=== PATIENT | female | born 1955 | race Caucasian/White ===

== ENCOUNTER 2016-06-13 13:26 | Emergency (ER) | payer BC ==
[~2016-06-13] VITALS: Ht 170.2 cm; Wt 111.6 kg
[~2016-06-13 13:26] MED LIST: HYDR1TAB8 PO; ORPH100T PO
--- NOTE | 2016-06-13 15:21 | Diagnostic Imaging Report ---
Three views of the right knee. INDICATION: Fall. FINDINGS: There is no fracture, dislocation or radiopaque foreign body. Small tricompartment osteophytes seen. There is a small to moderate suprapatellar effusion. IMPRESSION: Osteoarthritis. Small to moderate suprapatellar effusion. Dictated by: Dictated on workstation # [id number]
--- NOTE | 2016-06-13 15:23 | ED Lower Extremity ---
General Chief Complaint: Lower Extremity Stated Complaint: R KNEE PAIN Nursing Triage Note: Fell on right knee after it popped today, pain since early Dec fall onto knees on concrete Nursing Sepsis Screen: No Definite Risk Source: patient, family (daughter and son-in-law) Exam Limitations: no limitations History of Present Illness Time seen by provider: 15:23 Initial Comments 60-year-old female patient presents to the emergency department for complaints of falling on her bilateral knees approximately 3-4 weeks ago. Denies hitting her head or loss of consciousness. Reports increased right knee pain with popping sensation. Worse today. Also complains of right posterior knee pain and swelling. Denies claudication. Does report any intermittently locks when extended and intermittently locks when flexed. Denies numbness or tingling. Location Injury Occurred: home (3-4 wks ago) Onset: this morning Pain/Injury Location: right knee Method of Injury: fell ( (3-4 wks ago)) Modifying Factors: Improves With Immobilization, Worse With Movement Allergies and Home Medications Allergies Coded Allergies: No Known Drug Allergies (Unverified , 11/18/14) Home Medications Hydrocodone/Ibuprofen 1 Each Tablet #20 1 EACH PO Q4H Prescribed by: SEVERO TELLEZ on 04/03/152351 Orphenadrine Citrate 100 Mg Tablet.er #14 100 MG PO BID FOR MUSCLE SPASMS Prescribed by: SEVERO TELLEZ on 04/03/152 Constitutional: no symptoms reported Respiratory: No cough, No dyspnea on exertion, No orthopnea, No short of breath Cardiovascular: No chest pain, No palpitations, No syncope Gastrointestinal: no symptoms reported Genitourinary: no symptoms reported Musculoskeletal: see HPINo back pain, joint pain joint swelling (rt knee)No neck pain Skin: no symptoms reported Psychiatric/Neurological: No Symptoms Reported All Other Systems Reviewed Negative Unless Noted: Yes (Negative excepted noted.) Past Azfkgog-Bazzrd-Oscasb Hx Patient Social History Former Smoker/When Quit: Dec 16, 2003 Recent Foreign Travel: No Contact w/Someone Who Travel: No Recent Infectious Disease Expo: No Immunizations Up To Date Tetanus Booster (TDap): More than 5yrs Surgeries HX Surgeries: Yes (BACK SURGERY, CARDIAC CATH) Surgeries: Cardiac, Hysterectomy, Orthopedic Respiratory Hx Respiratory Disorders: No Cardiovascular Hx Cardiac Disorders: Yes (mitral valve prolapse with regurgitation) Cardiac Disorders: Hypertension, Valvular Heart Disease Neurological Hx Neurological Disorders: Yes Neurological Disorders: Neuropathy Reproductive System Hx Reproductive Disorders: No 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 Genitourinary Hx Genitourinary Disorders: No Gastrointestinal Hx Gastrointestinal Disorders: No Musculoskeletal Hx Musculoskeletal Disorders: Yes (BACK SURGERY) Musculoskeletal Disorders: Fibromyalgia, Chronic Back Pain Endocrine Hx Endocrine Disorders: Yes Endocrine Disorders: Hypothyroidsim, Diabetes, Non-Insulin dep HEENT HX ENT Disorders: No Cancer Hx Cancer: No Psychosocial Hx Psychiatric Problems: No Integumentary HX Skin/Integumentary Disorder: No Blood Transfusions Hx Blood Disorders: No Adverse Reaction to a Blood Tr: No Reviewed Nursing Assessment Reviewed/Agree w Nursing PMH: Yes Family Medical History Significant Family History: No Pertinent Family Hx Physical Exam Vital Signs Vital Sign - Last 12Hours 06/13/16 14:35 Temp 97.1 Pulse 75 Resp 20 B/P 100/70 Pulse Ox 99 O2 Delivery Room Air Capillary Refill : Less Than 3 Seconds General Appearance: WD/WN no apparent distress Cardiovascular: normal peripheral pulses no edema Hips: bilateral hip non-tender, bilateral hip normal inspection, bilateral hip normal range of motion, bilateral hip no evidence of injury Legs: bilateral leg non-tender, bilateral leg normal inspection, bilateral leg normal range of motion, bilateral leg no evidence of injury Knees: left knee non-tender, left knee normal inspection, left knee normal range of motion, left knee no evidence of injury, right knee bone tenderness, right knee joint effusion, right knee pain, right knee soft tissue tenderness, right knee swelling, right knee other (Limited range of motion) Ankles: bilateral ankle non-tender, bilateral ankle normal inspection, bilateral ankle normal range of motion, bilateral ankle no evidence of injury Feet: bilateral foot non-tender, bilateral foot normal inspection, bilateral foot normal range of motion, bilateral foot no evidence of injury Neurologic/Tendon: normal sensation normal motor functions normal tendon functions responds to pain no evidence tendon injury Neurologic/Psychiatric: no motor/sensory deficits alert normal mood/affect oriented x 3 Skin: normal color warm/dry Progress/Results/Core Measures Results/Orders My Orders Orders-DONNIE CHOPRA Venous Lower Ext Rt (06/13/16 15:31) Ketorolac Injection (Toradol Injection) (06/13/16 15:31) Oxycodone/Apap 5/325mg Tablet (Percocet (06/13/16 15:31) Vital Signs/I&O Vital Sign - Last 12Hours 06/13/16 06/13/16 14:35 15:44 Temp 97.1 97.1 Pulse 75 Resp 20 B/P 100/70 Pulse Ox 99 O2 Delivery Room Air Blood Pressure Mean: 80 Diagnostic Imaging Diagonstic Imaging: Xray Plain Films/CT/US/NM/MRI: knee Comments FINDINGS: There is no fracture, dislocation or radiopaque foreign body. Small tricompartment osteophytes seen. There is a small to moderate suprapatellar effusion. IMPRESSION: Osteoarthritis. Small to moderate suprapatellar effusion. Dictated on workstation # [id number] Reviewed: Reviewed by Me (radiology report reviewed by me) Diagonstic Imaging: Ultrasound Plain Films/CT/US/NM/MRI: leg Comments FINDINGS: The right lower extremity veins from the groin to below the knee veins were examined with normal color-flow, compressibility and normal waveform demonstrated. IMPRESSION: No evidence of DVT in the right lower extremity. Dictated by: Dictated on workstation # [id number] Reviewed: Reviewed by Me (radiology report reviewed by me) Departure Communication Progress Notes Diagnostic findings discussed with the patient. Plan for discharge to home. Impression Impression: Primary Impression: Knee pain Additional Impression: Knee effusion Disposition: HOME, SELF-CARE Condition: Improved Departure-Patient Inst. Decision time for Depature: 16:23 Referrals: DEENA IBRAHIM DO (PCP/Family) Primary Care Physician Patient Instructions: Knee Sprain (DC) Add. Discharge Instructions: All discharge instructions reviewed with patient and/or family. Voiced understanding. Medications as instructed. Ibuprofen 800 mg by mouth every 8 hours as needed for pain. Elevate the right knee on pillows. Ice pack for 20 minute intervals as needed for pain and swelling. Tyshawn wrap and knee immobilizer as instructed. Crutches as instructed if needed. Return to the emergency department for worsened symptoms or any other concerns. Follow up with your family practitioner for recheck and possible need for outpatient MRI of the knee. Scripts Hydrocodone/Acetaminophen (Hydrocodon -Acetaminophen 5-325)1 Each Tablet1 Each PO Q4H PRN PAIN #14 TAB Ref 0 Prov:DONNIE CHOPRA 06/13/16 DONNIE CHOPRA Jun 13, 2016 15:23
[2016-06-13] MEDS ORDERED: KETOROLAC 60 MG/2 ML VIAL IM STA (15:31)
[2016-06-13] MEDS ORDERED: oxyCODONE/APAP 5/325MG (PERCOCET 5) TABLET PO STA (15:31)
--- NOTE | 2016-06-13 16:19 | Diagnostic Imaging Report ---
EXAMINATION: Right lower extremity duplex venous ultrasound. TECHNIQUE: DVT protocol. Multiple sonographic images with color Doppler and waveform interrogation were performed of the right lower extremity veins with compression and augmentation maneuvers. INDICATION: Right leg pain. FINDINGS: The right lower extremity veins from the groin to below the knee veins were examined with normal color-flow, compressibility and normal waveform demonstrated. IMPRESSION: No evidence of DVT in the right lower extremity. Dictated by: Dictated on workstation # [id number]
[2016-06-13] MEDS ORDERED: HYDR-3812 PO (16:25)
[2016-06-13 16:50] VITALS: BP 106/70
[2016-08-24] MEDS ORDERED: HYDR-3812 PO (08:58)
== END 2016-06-13 16:53 | disposition home or self-care (01) ==
LOC: EDUNIT# 13:26 → ER 13:29
DX: M25.461 Effusion, right knee (principal); M17.11 Unilateral primary osteoarthritis, right knee; I10 Essential (primary) hypertension; E11.9 Type 2 diabetes mellitus without complications; Z79.899 Other long term (current) drug therapy
CPT/HCPCS: 73562; 96372

== ENCOUNTER 2016-08-17 08:44 | Outpatient (CLI) | payer BC ==
[~2016-08-17] VITALS: Ht 170.2 cm; Wt 111.8 kg
[~2016-08-17 08:44] MED LIST changes: +HYDR-3812 PO
[2016-08-17 09:02] VITALS: BP 119/81
[2016-08-17] MEDS ORDERED: ESTR0.9T PO (14:38)
[2016-08-17] MEDS ORDERED: ATOR40TA70 PO (14:38)
[2016-08-17] MEDS ORDERED: FLUO20CA42 PO (14:38)
[2016-08-17] MEDS ORDERED: LEVO75TA6 PO (14:38)
[2016-08-17] MEDS ORDERED: METO-274 PO (14:38)
[2016-08-17] MEDS ORDERED: AMIT50TA3 PO (14:38)
[2016-08-17] MEDS ORDERED: PREG100C PO (14:38)
[2016-08-17] MEDS ORDERED: METF500T4 PO (14:38)
[2016-08-17] MEDS ORDERED: DULO60CA58 PO (14:38)
== END 2016-08-17 14:00 ==
LOC: PREOP 08:44
PROVIDERS: ATTEND Orthopaedic Surgery
DX: Z01.818 Encounter for other preprocedural examination (principal); Z11.2 Encounter for screening for other bacterial diseases; M23.203 Derangement of unspecified medial meniscus due to old tear or injury, right knee
CPT/HCPCS: 87081

== ENCOUNTER 2016-08-24 08:15 | Day surgery (SDC) | payer BC ==
--- NOTE | 2016-08-23 07:51 | HISTORY AND PHYSICAL ---
DICTATING PHYSICIAN: Dr. Gant DATE OF ADMISSION: 08/24/2016 Outpatient surgery for right knee arthroscopy. HISTORY: The patient is a 60-year-old female who injured her right knee 6 weeks ago when she fell. She fell forward landing on to the anterior aspect of her knees. Since then she has had popping and locking and swelling in her right knee. She reports she had no knee problems prior to this. She has tried ibuprofen, brace wear and activity modifications, without relief and due to functional impairment and failure to improve with conservative measures the patient elected to proceed with surgical intervention. Nonweightbearing radiographs reveal mild to moderate degenerative changes in all 3 compartments. REVIEW OF SYSTEMS: No chest pain, no shortness of breath. No dysuria. PAST MEDICAL HISTORY: 1. Hypothyroidism. 2. Fibromyalgia. 3. Prediabetic. 4. Mitral valve prolapse. PAST SURGICAL HISTORY: Hysterectomy. FAMILY HISTORY: Lymphoma, ischemic heart disease. PRIMARY CARE PROVIDER: Dr. Vogel. MYCOLOGIST: Dr. Waters. MEDICATIONS: 1. Metformin 2. Premarin. 3. Levothyroxine. 4. Lipitor. 5. Metoprolol. 6. Fluoxetine. 7. Amitriptyline. 8. Lyrica. 9. Furosemide. 10. Potassium. ALLERGIES: No known drug allergies. SOCIAL HISTORY: The patient is a former smoker with a 10 pack-year history. She reports rare alcohol consumption. PHYSICAL EXAMINATION: The patient's well-developed, well-nourished, in no acute distress. HEENT: Normocephalic, atraumatic. Pupils are equal, and reactive light, oropharynx is clear. NECK: Supple with no lymphadenopathy. LUNGS: Clear to auscultation bilaterally. HEART: Regular rhythm. ABDOMEN: Soft, nontender, nondistended. EXTREMITY EXAM: The right knee demonstrates a moderate effusion. There is no warmth or erythema. She ambulates with an antalgic great. Range of motion 0/0/130. She has pain along her medial joint line to palpation with Alice's which reproduces her symptoms. She is tender along her posterior medial joint line and has pain posterior with hyperflexion. She has 1+ anterior drawer with negative Kingsley and a firm endpoint, negative posterior drawer. No varus valgus laxity. 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 PLAN: Right knee arthroscopy, partial meniscectomy and chondroplasty. The risks, benefits, options, ramifications and recovery have been discussed at length with the patient and she understands and wishes to proceed. Job ID: [id number] Dictated Date: 08/16/2016 11:37:00 Splunk Dashboard Developer Date: 08/16/2016 12:50:59/dustin
[~2016-08-24] VITALS: Ht 170.2 cm; Wt 111.8 kg
[~2016-08-24 08:15] MED LIST changes: +AMIT50TA3 PO; +ATOR40TA70 PO; +DULO60CA58 PO; +ESTR0.9T PO; +FLUO20CA42 PO; +LEVO75TA6 PO; +METF500T4 PO; +METO-274 PO; +PREG100C PO
[2016-08-24] MEDS ORDERED: LACTATED RINGERS 1,000 ML IV PRN (08:34)
[2016-08-24] MEDS ORDERED: ceFAZolin 1,000 MG (ANCEF) VIAL ONE (08:39)
[2016-08-24] MEDS ORDERED: NS (IVPB) 50 ML ONE (08:40)
[2016-08-24] MEDS ORDERED: ceFAZolin 1 GM/NS 50 ML IVPB IV ONE ×2 (08:45)
[2016-08-24] MEDS ORDERED: FAMOTIDINE 20MG/2ML IV (PEPCID) IV ONE (08:45)
--- NOTE | 2016-08-24 08:53 | Progress Note-Pre Operative ---
Pre-Operative Progress Note H&P Reviewed The H&P was reviewed, patient examined and no changes noted. Date H&P Reviewed: Aug 24, 2016 Time H&P Reviewed: 08:52 Pre-Operative Diagnosis: right knee medial meniscal tear and chondromalacia RONAK RAMOS MD Aug 24, 2016 08:53
--- NOTE | 2016-08-24 08:56 | Progress Note-Post Operative ---
Post-Operative Progess Note Event Decorator none Pre-Operative Diagnosis right knee medial meniscal tear and chondromalacia Post-Operative Diagnosis right medial meniscal tear and chondromalacia of the patella, trochlea, medial femoral condyle, and medial tibial plateau Post-Op Procedure Note Date of Procedure: Aug 24, 2016 Name of Procedure: right knee arthroscopic partial medial meniscectomy, and chondroplasty of the medial femoral condyle, medial tibial plateau, patella and trochlea Anesthesia Type GETA Estimated blood loss (mL): minimal Packing: none Specimen(s) collected none RONAK RAMOS MD Aug 24, 2016 08:55
[2016-08-24] MEDS ORDERED: HYDR-3812 PO (08:58)
[2016-08-24] MEDS ORDERED: proPOfol 200 MG/20 ML (DIPRIVAN) VIAL IV ONE (08:59)
[2016-08-24] MEDS ORDERED: DEXAMETHASONE PF 10 MG/ML (DECADRON) VIAL ONE (08:59)
[2016-08-24] MEDS ORDERED: LIDOCAINE PF 2% 10 ML (XYLOCAINE) AMP ONE (08:59)
[2016-08-24] MEDS ORDERED: LACTATED RINGERS 1,000 ML IV ONE ×2 (08:59→10:38)
[2016-08-24] MEDS ORDERED: MIDAZOLAM 2 MG/2 ML (VERSED) VIAL ONE (08:59)
[2016-08-24] MEDS ORDERED: HURRICAINE EXT TUBE (BENZOCAINE) ONE (08:59)
[2016-08-24] MEDS ORDERED: SEVOFLURANE (ULTANE) 15 ML INHAL SOLN ONE ×4 (08:59→10:38)
[2016-08-24] MEDS ORDERED: fentaNYL INJECTION 100 MCG/2 ML AMP ONE (08:59)
[2016-08-24] MEDS ORDERED: ATRACURIUM 50 MG/5 ML (TRACRIUM) IV ONE (08:59)
[2016-08-24] MEDS ORDERED: HYDROcodone/APAP 5 MG/325 MG (LORTAB) TAB PO PRN (09:00)
[2016-08-24] MEDS ORDERED: morphine PF (DURAMORPH) 10 MG/10 ML AMP ONE (09:12)
[2016-08-24] MEDS ORDERED: BUPIVACAINE 0.25% 30 ML (SENSORCAINE) VIAL ONE (09:12)
[2016-08-24 09:38] VITALS: BP 127/80
[2016-08-24] MEDS ORDERED: morphine INJ 10 MG/ML 1ML (SYR OR VIAL) ONE (10:54)
[2016-08-24] MEDS: morphine INJ 10 MG/ML 1ML (SYR OR VIAL) IV PRN ×2 (10:59→11:12)
[2016-08-24] MEDS ORDERED: PROMETHAZINE INJ 25 MG/ML (PHENERGAN) AMP IV PRN (11:00)
[2016-08-24] MEDS ORDERED: fentaNYL INJECTION 100 MCG/2 ML AMP IV PRN (11:00)
[2016-08-24] MEDS ORDERED: MEPERIDINE (DEMEROL) INJ 50 MG/ML ONE (11:01)
[2016-08-24] MEDS: MEPERIDINE (DEMEROL) INJ 50 MG/ML IV PRN ×2 (11:03→11:05)
[2016-08-24] MEDS ORDERED: ONDANSETRON 4 MG/2 ML (SDV) Z0FRAN ONE (11:31)
[2016-08-24] MEDS: ONDANSETRON 4 MG/2 ML (SDV) Z0FRAN IV PRN ×2 (11:34→13:00)
[2016-08-24 11:50] VITALS: BP 122/60
[2016-08-24 12:20] VITALS: BP 112/64
[2016-08-24 12:50] VITALS: BP 129/69
[2016-08-24] MEDS ORDERED: ONDANSETRON 4 MG/2 ML (SDV) Z0FRAN IVP ONE (13:00)
--- NOTE | 2016-08-24 13:09 | OPERATIVE REPORT ---
PROCEDURE PHYSICIAN: RONAK RAMOS DATE OF PROCEDURE: 08/24/2016 PREOPERATIVE DIAGNOSIS: 1. Right knee medical meniscal tear. 2. Right knee chondromalacia of the patella. 3. Right knee chondromalacia of the medial femoral condyle. POSTOPERATIVE DIAGNOSIS: 1. Right knee medial meniscal tear. 2. Right knee chondromalacia of the patella. 3. Right knee chondromalacia of the medial femoral condyle. 4. Right knee chondromalacia of the trochlea. 5. Right knee chondromalacia of the medial tibial plateau. PROCEDURE: 1. Right knee arthroscopic partial medial meniscectomy. 2. Right knee arthroscopic chondroplasty of the patella. 3. Right knee arthroscopic chondroplasty of the medial femoral condyle. 4. Right knee arthroscopic chondroplasty of the trochlea. 5. Right knee arthroscopic chondroplasty of the medial tibial plateau SURGEON: Alfreda. ANESTHESIA: General endotracheal. ESTIMATED BLOOD LOSS: Minimal. DRAINS: None. COMPLICATIONS: None. POSTOPERATIVE PLAN: Routine arthroscopy protocol. The patient was transported to the recovery room, awake, and in stable condition. STATEMENT OF MEDICAL NECESSITY: The patient is a 60-year-old female with complaints of right knee pain, catching, locking and swelling. She had a fall and had increased medial knee pain. Radiographs revealed medial and the patellofemoral joint space narrowing. The patient was counseled that an arthroscopy would not alleviate her arthritic symptoms but due to mechanical symptoms, the patient elected to proceed with surgical intervention. Examination under anesthesia revealed range of motion 0/0/130. Negative Kingsley. Negative anterior posterior drawer. No varus valgus laxity. Negative pivot shift. Arthroscopic findings: The patella demonstrated diffuse grade 2 changes centrally in a 20 x 20 area. The trochlea demonstrated grade 2 changes in a 10 x 10 area superiorly. The medial and lateral gutters were clear. The lateral compartment demonstrated no significant meniscal or chondral pathology. The ACL and PCL were intact. The medial compartment demonstrated grade 3 chondral flaps over the central portion of femoral condyle in a 20 x 20 area and grade 2 chondral flaps over the central portion of tibial plateau in a 10 x 10 area. The posterior horn of the medial meniscus demonstrated a horizontal cleavage tear involving approximately 1/3rd of the posterior horn. PROCEDURE: After risks and benefits of the procedure were discussed and questions were answered an informed consent was signed and placed on chart. The operative site was confirmed in the preoperative holding area and initialed by the surgeon. The patient was then transported to the operating room. After adequate levels of general endotracheal anesthetic were seen a timeout was called confirming the operative site. Examination under anesthesia was performed with the above findings noted. The right lower extremity was prepped and draped in the usual sterile fashion. The knee was injected with 60 mL of fluid and a standard inferolateral portal was placed for the arthroscope. Under direct visualization an inferior medial port was created. The menisci and cruciate was carefully probed with the above findings noted. The unstable chondral flaps on the patella and trochlea were debrided with the shaver back to a stable edge. The scope was then redirected into the medial compartment where the posterior horn of the medial meniscus was debrided with a biter and contoured with a shaver, removing approximately 1/3rd of the posterior horn. This was carefully probed with no further tearing or instability noted. The unstable chondral flaps on the medial femoral condyle and medial tibial plateau were debrided with a shaver, back to a stable edge. The knee was copiously irrigated. Port sites were closed with 3-0 nylon in simple interrupted fashion. The knee was injected with Duramorph. Port sites were infiltrated with plain Marcaine. A soft dressing was applied. The patient was transported to the recovery awake, in stable condition. Job ID: [id number] Dictated Date: 08/24/2016 10:52:00 Emergency Medical Technician Date: 08/24/2016 12:44:18 / dustin
[2016-08-24 14:00] VITALS: BP 129/69
--- NOTE | 2016-08-24 14:17 | Physical Therapy Pre-Op Eval ---
PT Pre-Surgical Assessment Type of Surgery Type of Surgery: Knee Scope Elective (R) knee arthroscopy with partial medial meniscectomy and chondroplasty. Prior Level of Function Current Living Status: Alone Locomotion (Upon Admit): Independent Distance: unlimited PLOF DME: None Subjective Subjective Pt injured her knee approximately 6 weeks ago when she fell and landed on it. She had persistent popping and locking of the knee. Conservative measures did not improve her condition and she resulted to undergo surgery. Pt reports she will be returning home and will have someone to stay with her the first few nights to provide assistance as needed. Pt reports she has crutches, walker, commode, and w/c ramp in place at home due to her needing all of these items for health reasons. Home: Single Level Current Living Status: Alone Entry Into Home: Ramp Steps Inside Home: 2 Steps Accessories: Ramped Entrance Motor Control Motor Control: Motor Control WNL ROM ROM: WFL, except focal deficit lacks 5 degrees of full extension in the right knee and flexion is to 120 degrees Strength Strength: WFL right knee quads 4/5 Transfers Transfers (B, C, W/C) (FIM): 6 Gait Gait (FIM): 5 Gait Distance (FIM): 5 Distance: 150 Gait Assistive Device: FWW Weight Bearing Restriction: Weight Bearing/Tolerated Location Restriction: R LE demonstrated up/down 1 step with FWW using appropriate sequence Treatment Rendered Treatment: Patient instructed in assistive device, supported ambulation. Patient instructed in and given written program of ROM and strengthening exercises to be preformed post-op. Patient instructed in movement precautions where applicable. Patient demonstrates understandings of post-operative therapy protocol including gait pattern and exercise program. Pre-operative instruction completed; await physical therapy orders after surgery. Treatment Goal Met: Yes Assessment Goals Acheived: I Ambulation w/ FWW, Understands P-op Precaut, I Post-op Exercises Charges/GCodes Time In: 1345 Time Out: 1420 Total Billed Treatment Time: 30 Total Billed Treatment visit, eval low complexity G Codes Necessary: Yes (G8978, CI G8979 CI, C8980 CI) SYLVAIN BRYAN PT Aug 24, 2016 14:17
[2016-08-24 14:35] VITALS: BP 129/69
--- OUTSIDE RECORDS SUMMARY | 2016-08-28 04:43 | XMS REPORT | Continuity of Care Document ---
Author Author [facility] Organization [facility] Address Unknown Phone Unavailable Allergies Active Description Code Type Severity Reaction Onset Reported/Identified Relationship to Patient Clinical Status Yes No Known Drug Allergies [id number] Drug Allergy Unknown N/ A 08/17/2016 Medications Problems Date Dx Coded Attending Type Code Diagnosis Diagnosed By 10/14/2009 Ot 244.9 10/14/2009 Ot 272.4 10/14/2009 Ot 401.9 10/14/2009 Ot 414.01 10/14/2009 Ot 424.0 10/14/2009 Ot 729.1 10/14/2009 Ot 780.79 10/14/2009 Ot 786.09 10/14/2009 Ot 786.50 10/14/2009 Ot 794.30 10/14/2009 Ot V07.4 10/14/2009 Ot V58.66 10/14/2009 Ot V58.69 02/17/2013 SUZI RAMIREZ Ot 272.4 HYPERLIPIDEMIA NEC/NOS 02/17/2013 SUZI RAMIREZ Ot 401.9 HYPERTENSION NOS 02/17/2013 SUZI RAMIREZ Ot 414.00 CORON ATHEROSCLER NOS TYPE VESSEL, NATIV 02/17/2013 SUZI RAMIREZ Ot 416.8 CHR PULMON HEART DIS NEC 02/17/2013 SUZI RAMIREZ Ot 785.1 PALPITATIONS 06/03/2013 DEENA IBRAHIM DO Ot 790.21 IMPAIRED FASTING GLUCOSE 11/12/2014 Ot 272.4 11/12/2014 Ot 396.3 11/12/2014 Ot 401.9 11/12/2014 Ot 416.8 11/12/2014 Ot 429.3 11/12/2014 Ot 786.09 11/12/2014 Ot 786.50 11/12/2014 Ot 272.4 11/12/2014 Ot 401.9 11/12/2014 Ot 786.09 11/12/2014 Ot 786.50 11/12/2014 Ot 401.9 11/12/2014 Ot 414.01 11/12/2014 Ot 518.89 11/12/2014 Ot 786.50 11/12/2014 Ot 794.39 11/12/2014 Ot V72.63 11/12/2014 Ot V72.81 11/12/2014 Ot V74.8 11/18/2014 Ot 272.4 11/18/2014 Ot 401.9 11/18/2014 Ot 414.00 11/18/2014 Ot 416.8 11/18/2014 Ot 785.1 11/18/2014 Ot 790.21 11/25/2014 MITCHELL-HARSHIL PA, SUZI K Ot 272.4 11/25/2014 MITCHELL-HARSHIL PA, SUZI K Ot 401.9 11/25/2014 MITCHELL-HARSHIL PA, SUZI K Ot 414.9 11/25/2014 MITCHELL-HARSHIL PA, SUZI K Ot 433.10 12/09/2014 MITCHELL-HARSHIL PA, SUZI K Ot 272.4 12/09/2014 MITCHELL-HARSHIL PA, SUZI K Ot 401.9 12/09/2014 MITCHELL-HARSHIL PA, SUZI K Ot 414.9 12/09/2014 MITCHELL-HARSHIL PA, SUZI K Ot 433.10 12/11/2014 MITCHELL-HARSHIL PA, SUZI K Ot 272.4 12/11/2014 MITCHELL-HARSHIL PA, SUZI K Ot 401.9 12/11/2014 MICTHELL-HARSHIL PA, SUZI K Ot 414.9 12/11/2014 MITCHELL-HARSHIL PA, SUZI K Ot 433.10 01/19/2015 Ot 272.4 01/19/2015 Ot 396.3 01/19/2015 Ot 401.9 01/19/2015 Ot 416.8 01/19/2015 Ot 429.3 01/19/2015 Ot 786.09 01/19/2015 Ot 786.50 01/19/2015 Ot 272.4 01/19/2015 Ot 401.9 01/19/2015 Ot 786.09 01/19/2015 Ot 786.50 01/19/2015 Ot 401.9 01/19/2015 Ot 414.01 01/19/2015 Ot 518.89 01/19/2015 Ot 786.50 01/19/2015 Ot 794.39 01/19/2015 Ot V72.63 01/19/2015 Ot V72.81 01/19/2015 Ot V74.8 03/05/2015 Ot R73.01 03/28/2015 Ot 401.9 03/28/2015 Ot 414.01 03/28/2015 Ot 518.89 03/28/2015 Ot 786.50 03/28/2015 Ot 794.39 03/28/2015 Ot V72.63 03/28/2015 Ot V72.81 03/28/2015 Ot V74.8 03/30/2015 Ot 401.9 03/30/2015 Ot 414.01 03/30/2015 Ot 518.89 03/30/2015 Ot 786.50 03/30/2015 Ot 794.39 03/30/2015 Ot V72.63 03/30/2015 Ot V72.81 03/30/2015 Ot V74.8 04/01/2015 Ot 401.9 04/01/2015 Ot 414.01 04/01/2015 Ot 518.89 04/01/2015 Ot 786.50 04/01/2015 Ot 794.39 04/01/2015 Ot V72.63 04/01/2015 Ot V72.81 04/01/2015 Ot V74.8 04/04/2015 Ot 272.4 04/04/2015 Ot 401.9 04/04/2015 Ot 414.00 04/04/2015 Ot 416.8 04/04/2015 Ot 785.1 04/04/2015 DEENA IBRAHIM DO Ot 241.0 04/04/2015 DEENA IBRAHIM DO Ot 244.9 04/04/2015 SUZI RAMIREZ Ot 272.4 04/04/2015 SUZI RAMIREZ Ot 401.9 04/04/2015 SUZI RAMIREZ Ot 414.9 04/04/2015 SUZI RAMIREZ Ot 433.10 04/04/2015 SUZI RAMIREZ Ot 272.4 04/04/2015 SUZI RAMIREZ Ot 401.9 04/04/2015 SUZI RAMIREZ Ot 414.9 04/04/2015 SUZI RAMIREZ Ot 433.10 04/04/2015 SEVERO TELLEZ DO Ot S00.81XA ABRASION OF OTHER PART OF HEAD, INITIAL 04/04/2015 SEVERO TELLEZ DO Ot S00.83XA CONTUSION OF OTHER PART OF HEAD, INITIAL 04/04/2015 SEVERO TELLEZ DO Ot S22.42XA MULTIPLE FRACTURES OF RIBS, LEFT SIDE, I 04/04/2015 SEVERO TELLEZ DO Ot W01.0XXA FALL SAME LEV FROM SLIP/TRIP W/O STRIKE 04/04/2015 SEVERO TELLEZ DO Ot Y92.[address] OF OCCURRENCE OF T 04/04/2015 SEVERO TELLEZ DO Ot Y99.8 OTHER EXTERNAL CAUSE STATUS 04/04/2015 SEVERO TELLEZ DO Ot Z23 ENCOUNTER FOR IMMUNIZATION 06/13/2016 Ot 272.4 HYPERLIPIDEMIA NEC/NOS 06/13/2016 Ot 401.9 HYPERTENSION NOS 06/13/2016 Ot 414.00 CORON ATHEROSCLER NOS TYPE VESSEL, NATIV 06/13/2016 Ot 416.8 CHR PULMON HEART DIS NEC 06/13/2016 Ot 785.1 PALPITATIONS 06/13/2016 DEENA IBRAHIM DO S Ot 241.0 NONTOX UNINODULAR GOITER 06/13/2016 DEENA IBRAHIM DO S Ot 244.9 HYPOTHYROIDISM NOS 06/13/2016 SUZI RAMIREZ Ot 272.4 HYPERLIPIDEMIA NEC/NOS 06/13/2016 SUZI RAMIREZ Ot 401.9 HYPERTENSION NOS 06/13/2016 SUZI RAMIREZ Ot 414.9 CHR ISCHEMIC HRT DIS NOS 06/13/2016 SUZI RAMIREZ Ot 433.10 CAROTID ARTERY OCCLUSION W O CEREBRAL IN 06/13/2016 SUZI RAMIREZ Ot 272.4 HYPERLIPIDEMIA NEC/NOS 06/13/2016 SUZI RAMIREZ Ot 401.9 HYPERTENSION NOS 06/13/2016 SUZI RAMIREZ Ot 414.9 CHR ISCHEMIC HRT DIS NOS 06/13/2016 SUZI RAMIREZ Ot 433.10 CAROTID ARTERY OCCLUSION W O CEREBRAL IN 06/14/2016 DONNIE DONALD Ot E11.9 TYPE 2 DIABETES MELLITUS WITHOUT COMPLIC 06/14/2016 DONNIE DONALD Ot I10 ESSENTIAL (PRIMARY) HYPERTENSION 06/14/2016 DONNIE DONALD Ot M17.11 UNILATERAL PRIMARY OSTEOARTHRITIS, RIGHT 06/14/2016 DONNIE DONALD Ot M25.461 EFFUSION, RIGHT KNEE 06/14/2016 DONNIE DONALD Ot M25.561 PAIN IN RIGHT KNEE 06/14/2016 DONNIE DONALD Ot 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 08/17/2016 Ot 272.4 HYPERLIPIDEMIA NEC/NOS 08/17/2016 Ot 401.9 HYPERTENSION NOS 08/17/2016 Ot 414.00 CORON ATHEROSCLER NOS TYPE VESSEL, NATIV 08/17/2016 Ot 416.8 CHR PULMON HEART DIS NEC 08/17/2016 Ot 785.1 PALPITATIONS 08/18/2016 RONAK RAMOS MD Ot M23.203 DERANG OF UNSP MEDIAL MENISCUS DUE TO OL 08/18/2016 RONAK RAMOS MD Ot Z01.818 ENCOUNTER FOR OTHER PREPROCEDURAL EXAMIN 08/18/2016 RONAK RAMOS MD Ot Z11.2 ENCOUNTER FOR SCREENING FOR OTHER BACTER Procedures Results Test Result Range Methicillin resistant Staphylococcus aureus (MRSA) screening culture - 09:00 Methicillin resistant Staphylococcus aureus (MRSA) screening culture NEG NRG Capillary blood glucose measurement by glucometer (mass/volume) - 08/24/16 08: 55 Capillary blood glucose measurement by glucometer (mass/volume) 115 mg/dL 70-110 Capillary blood glucose measurement by glucometer (mass/volume) - 08/24/16 11: 11 Capillary blood glucose measurement by glucometer (mass/volume) 111 mg/dL 70-110 Encounters ACCT No. Visit Date/Time Discharge Status Pt. Type Provider Facility Loc./Unit Complaint [id number] 08/17/2016 08:44:00 2016 14:00:00 DIS Outpatient RONAK RAMOS MD [facility] PREOP RIGHT TORN MEDIAL MENISCUS [id number] 06/13/2016 13:29:00 2016 16:53:00 DIS Outpatient DONNIE DONALD [facility] ER R KNEE PAIN [id number] 04/03/2015 21:15:00 2014 00:31:00 DIS Emergency SEVERO TELLEZ DO [facility] ER FALL [id number] 11/27/2014 13:02:00 2014 23:59:59 CLS Outpatient SUZI RAMIREZ [facility] CARD CAD,LENIN,HTN [id number] 11/18/2014 06:55:00 2014 23:59:59 CLS Outpatient SUZI RAMIREZ [facility] CARD CAD,LENIN,HTN [id number] 11/06/2013 14:46:00 2013 23:59:59 CLS Outpatient DEENA IBRAHIM DO [facility] RAD HYPOTHYROIDISM [id number] 03/25/2013 18:00:00 2012 00:01:00 DIS Outpatient DEENA IBRAHIM DO [facility] DSME DIABETES [id number] 11/19/2012 09:55:00 2012 00:01:00 DIS Outpatient SUZI RAMIREZ [facility] CARD HTP,HTN,HLP,PALPITATIONS [id number] 08/24/2016 10:00:00 YESENIA RAMOS MD, RONAK Haney [facility] SD RIGHT TORN MED MENISCUS [id number] 11/18/2014 07:08:00 Document Registration [id number] 06/04/2013 11:30:00 Document Registration [id number] 10/14/2009 05:37:00 Document Registration [id number] 10/13/2009 08:24:00 Document Registration [id number] 10/05/2009 07:33:00 Document Registration [id number] 09/09/2009 13:23:00 Document Registration
== END 2016-08-24 14:40 | disposition home or self-care (01) ==
LOC: DELPENDDIS → SDC 08:15
PROVIDERS: ATTEND Orthopaedic Surgery
DX: S83.241A Other tear of medial meniscus, current injury, right knee, initial encounter (principal); M22.41 Chondromalacia patellae, right knee; E03.9 Hypothyroidism, unspecified; R73.03 Prediabetes; M79.7 Fibromyalgia; I34.1 Nonrheumatic mitral (valve) prolapse; W19.XXXA Unspecified fall, initial encounter; Y99.8 Other external cause status; Z79.899 Other long term (current) drug therapy
CPT/HCPCS: 82962

== ENCOUNTER → 2020-10-02 | Outpatient (CLI) | payer BC, MEDICARE ==
[~2020-10-02] MED LIST changes: +ACHD5005 PO; -DULO60CA58 PO; +DULO60CA59 PO; -HYDR-3812 PO; +METF-397 PO; -METF500T4 PO; -METO-274 PO; +MTP100TCR PO
== END ==
LOC: CARD 13:46
PROVIDERS: ATTEND Physician Assistant
DX: I25.10 Atherosclerotic heart disease of native coronary artery without angina pectoris (principal); I10 Essential (primary) hypertension; I08.0 Rheumatic disorders of both mitral and aortic valves
CPT/HCPCS: 93306

== ENCOUNTER → 2020-11-16 | Outpatient (CLI) | payer BC, MEDICARE ==
[~2020-11-16] VITALS: Ht 170 cm; Wt 88.0 kg
[~2020-11-16] MED LIST changes: +CATHETER FLUSH 10 ML SYR IV PRN; +REGADENOSON 0.4 MG/5 ML SYR (LEXISCAN) IV ONE
[2020-11-16 09:34] VITALS: BP 150/94
--- NOTE | 2020-11-16 15:43 | STRESS TEST ---
DATE OF SERVICE: 11/16/2020 RESTING AND POST REGADENOSON TECHNETIUM-99M TETROFOSMIN SPECT CT IMAGING ORDERING PHYSICIAN: Radhika Portillo. PRIMARY PHYSICIAN: Dr. Vogel. OTHER PHYSICIAN: Dr. Waters. CLINICAL DIAGNOSIS: Coronary artery disease. Baseline images were carried out after injection of 10.9 mCi of technetium-99m Tetrofosmin. This was followed by 0.4 mg regadenoson and 31.8 mCi of technetium-99m Tetrofosmin for stress imaging. The electrocardiogram showed sinus rhythm at baseline. It did not change significantly with the regadenoson infusion. The patient tolerated the procedure well. Review of images at rest and following stress indicates a relatively small perfusion defect that appears mostly transient. Gated images show normal global left ventricular systolic function with normal regional wall motion. Left ventricular ejection fraction is calculated to be 59%. Left ventricular end diastolic volume is 84 mL. TID is absent (1.09). CONCLUSIONS: 1. The study is indicative of a small amount of apical ischemia. 2. Normal regional wall motion. 3. Normal global left ventricular systolic function with a calculated ejection fraction of 59%. Job ID: [id number] DocumentID: [id number] Dictated Date: 11/16/2020 12:23:15 Park Aide Date: 11/16/2020 15:42:11 Dictated By: HUSSAIN BELTRAN MD, MA, FACP, FACC,
== END ==
LOC: CARD 08:15
PROVIDERS: ATTEND Physician Assistant
DX: I25.10 Atherosclerotic heart disease of native coronary artery without angina pectoris (principal); I10 Essential (primary) hypertension
CPT/HCPCS: 78452; 93017; A9502

== ENCOUNTER 2021-05-03 05:28 | Outpatient (RCR) | payer MEDICARE, OTHER ==
[2021-04-28 11:49] LABS: BASOPHILS # (AUTO) 0.1 10^3/uL (0.0-0.1); BASOPHILS % (AUTO) 2 % (0-10); EOSINOPHILS # (AUTO) 0.2 10^3/uL (0.0-0.3); EOSINOPHILS % (AUTO) 5 % (0-10); HEMATOCRIT 36 % (35-52); LYMPHOCYTES % (AUTO) 40 % (12-44); MEAN CORPUSCULAR HEMOGLOBIN 31 pg (25-34); MEAN CORPUSCULAR HGB CONC 34 g/dL (32-36); MEAN CORPUSCULAR VOLUME 92 fL (80-99); MEAN PLATELET VOLUME 10.1 fL (9.0-12.2); MONOCYTES # (AUTO) 0.7 10^3/uL (0.0-1.0); MONOCYTES % (AUTO) 14 % (0-12); NEUTROPHILS % (AUTO) 40 % (42-75); PLATELET COUNT 321 10^3/uL (130-400); WHITE BLOOD COUNT 5.1 10^3/uL (4.3-11.0)
[2021-04-28 11:51] LABS: BILIRUBIN,URINE NEGATIVE (NEGATIVE); CLARITY,URINE CLEAR; COLOR,URINE YELLOW; GLUCOSE, URINE (UA) NEGATIVE (NEGATIVE); KETONES,URINE NEGATIVE (NEGATIVE); LEUKOCYTE ESTERASE ,URINE NEGATIVE (NEGATIVE); NITRITE,URINE NEGATIVE (NEGATIVE); PROTEIN,URINE NEGATIVE (NEGATIVE)
[2021-04-28 12:08] LABS: ALBUMIN 3.7 GM/DL (3.2-4.5); BILIRUBIN,TOTAL 0.6 MG/DL (0.1-1.0); CALCIUM 8.6 MG/DL (8.5-10.1); CREATININE SERUM 0.78 MG/DL (0.60-1.30); TOTAL PROTEIN 6.8 GM/DL (6.4-8.2)
[2021-04-28 12:10] LABS: PROTHROMBIN TIME PATIENT 13.5 SEC (12.2-14.7)
[2021-04-28 12:11] LABS: BACTERIA,URINE NEGATIVE /HPF; SQUAMOUS EPITHELIAL CELL,UR 0-2 /HPF
[2021-04-28 12:12] LABS: ERYTHROCYTE SEDIMENTATION RATE 17 MM/HR (0-30)
--- NOTE | 2021-04-28 13:09 | Diagnostic Imaging Report ---
INDICATION: Preoperative evaluation for knee surgery. COMPARISON: 04/03/2015 FINDINGS: Frontal and lateral views of the chest demonstrate normal heart size and pulmonary vascularity. The lungs are clear. There are no signs of infiltrate, pleural effusions or pneumothoraces. The visualized osseous structures show no acute abnormalities. IMPRESSION: 1. No acute process. No signs of infiltrates, effusions or pneumothoraces. Dictated by: Dictated on workstation # [id number]
[~2021-05-03] VITALS: Ht 170.2 cm; Wt 93.8 kg
[~2021-05-03 05:28] MED LIST changes: -CATHETER FLUSH 10 ML SYR IV PRN; +ESTR1TAB24 PO; +FURO40TA4 PO; +LEVO50TA6 PO; +LEVO5TAB12 PO; +METO50TA7 PO; +MV-M1TAB57 PO; +OMEP1CAP PO; +OMG1KC PO; -REGADENOSON 0.4 MG/5 ML SYR (LEXISCAN) IV ONE
== END 2021-05-03 11:53 | disposition home or self-care (01) ==
LOC: PREOP 05:28
PROVIDERS: ATTEND Orthopaedic Surgery
DX: Z01.818 Encounter for other preprocedural examination (principal); M17.11 Unilateral primary osteoarthritis, right knee
CPT/HCPCS: 36415; 71046; 80053; 81000; 85025; 85610; 85652; 86850; 86900; 86901; 87081; 87635; 93005

== ENCOUNTER 2021-05-05 05:56 | Inpatient (IN) | payer MEDICARE, OTHER ==
--- NOTE | 2021-04-28 14:59 | HISTORY AND PHYSICAL ---
DATE OF SERVICE: ADMISSION HISTORY AND PHYSICAL Date of surgery, date of service will be 05/05/2021. This will be for inpatient admission on 05/05/2021 for right total knee arthroplasty. The patient will require regular inpatient admission for pain management, physical therapy and comorbidities. HISTORY: The patient is a 65-year-old female with progressively worsening right knee pain. She reports pain on the medial aspect of her knee. She reports activity limitations because of the knee. She has tried rest, activity modifications without relief. She has also undergone arthroscopy. She reports injections have not helped. Radiographs revealed severe medial and patellofemoral arthrosis and due to progressive symptoms and failure to improve with conservative measures, the patient elected to proceed with surgical intervention. REVIEW OF SYSTEMS: No chest pain, no shortness of breath, no dysuria. PAST MEDICAL HISTORY: Hypothyroidism, fibromyalgia, diabetes, mitral valve prolapse, hyperlipidemia, hypertension. PAST SURGICAL HISTORY: Hysterectomy, lumbar spine and knee arthroscopy. FAMILY HISTORY: Significant for cancer, ischemic heart disease. PRIMARY CARE PROVIDER: Dr. Vogel. MEDICATIONS: Estradiol, levothyroxine, Lipitor, metoprolol, amitriptyline, furosemide, metformin, aspirin, fish oil, Zegerid, vitamin D, gabapentin. ALLERGIES: VICODIN, MANGOES. SOCIAL HISTORY: The patient is a former smoker with [id number]-[id number] history. She drinks alcohol rarely. PHYSICAL EXAMINATION: GENERAL: The patient is a well developed, well nourished, in no acute distress. HEENT: Normocephalic, atraumatic. Pupils are equal, round and reactive to light. Oropharynx is clear. NECK: Supple, with no lymphadenopathy. LUNGS: Clear to auscultation bilaterally. HEART: Regular rate and rhythm. ABDOMEN: Soft, nontender, nondistended. EXTREMITIES: Exam of the right knee demonstrates marked patellofemoral crepitus. She has moderate effusion. She is tender along the medial joint line. Range of motion is 0/2/125. She has negative straight leg raise. No pain with internal or external rotation of the hip. She ambulates with an antalgic gait. IMPRESSION: Severe right knee osteoarthritis. PLAN Right total knee arthroplasty. The risks, benefits, options, ramifications and recovery have been discussed at length with the patient. She understands and wishes to proceed. Job ID: [id number] DocumentID: [id number] Dictated Date: 04/19/2021 11:25:03 Lane Marker Installer Date: 04/19/2021 15:59:04 Dictated By: RONAK RAMOS MD
[~2021-05-05] VITALS: Ht 170 cm; Wt 93.8 kg
[2021-05-05] VITALS (13 sets, daily range): BP systolic 109–154; BP diastolic 64–89
[2021-05-05] MEDS ORDERED: CEFUROXIME INJECTION 1,500 MG in NS (IVPB) 50 ML IV ONE (06:30)
[2021-05-05] MEDS ORDERED: ASPI-1238 PO (06:47)
[2021-05-05] MEDS ORDERED: SCOPOLAMINE 1.5 MG (TRANSDERM-SCOP) PATCH ONE (06:55)
[2021-05-05] MEDS ORDERED: ONDANSETRON 4 MG/2 ML (SDV) Z0FRAN ONE ×2 (06:55→07:19)
[2021-05-05] MEDS ORDERED: CEFUROXIME 1.5 GM/15 ML (ZINACEF) VIAL ONE (06:55)
[2021-05-05] MEDS ORDERED: FAMOTIDINE 20MG/2ML IV (PEPCID) ONE (06:56)
[2021-05-05] MEDS ORDERED: MIDAZOLAM 2 MG/2 ML (VERSED) VIAL ONE (06:58)
[2021-05-05] MEDS: LACTATED RINGERS 1,000 ML IV PRN ×2 (06:59→09:41)
[2021-05-05] MEDS ORDERED: FAMOTIDINE 20MG/2ML IV (PEPCID) IV ONE (07:00)
[2021-05-05] MEDS ORDERED: SCOPOLAMINE 1.5 MG (TRANSDERM-SCOP) PATCH TOP ONE (07:00)
[2021-05-05] MEDS ORDERED: ONDANSETRON 4 MG/2 ML (SDV) Z0FRAN IV ONE (07:00)
[2021-05-05] MEDS ORDERED: diphenhydrAMINE 50 MG/ML INJ (BENADRYL) IVP PRN (07:15)
[2021-05-05] MEDS ORDERED: morphine PCA 100 MG/100 ML BAG IV PRN (07:15)
[2021-05-05] MEDS ORDERED: NALOXONE 0.4 MG/ML 1 ML (NARCAN) VIAL IV PRN (07:15)
[2021-05-05] MEDS ORDERED: LIDOCAINE PF 2% 5 ML (XYLOCAINE) VIAL ONE (07:18)
[2021-05-05] MEDS ORDERED: fentaNYL INJ 100 MCG/2 ML AMP ONE (07:19)
[2021-05-05] MEDS ORDERED: TRANEXAMIC ACID 100 MG/ML 10 ML INJECTION ONE (07:19)
[2021-05-05] MEDS ORDERED: proPOfol 200 MG/20 ML (DIPRIVAN) VIAL IV ONE (07:19)
--- NOTE | 2021-05-05 07:38 | Progress Note-Pre Operative ---
Pre-Operative Progress Note H&P Reviewed The H&P was reviewed, patient examined and no changes noted. Date Seen by Provider: May 05, 2021 Time Seen by Provider: 07:22 Date H&P Reviewed: May 05, 2021 Time H&P Reviewed: 07:11 Pre-Operative Diagnosis: right knee primary osteoarthritis RONAK RAMOS MD May 05, 2021 07:38
--- NOTE | 2021-05-05 07:39 | Progress Note-Post Operative ---
Post-Operative Progess Note Surgeon (s)/Visual Merchandiser (s) Surgeon RONAK RAMOS MD Visual Merchandiser: Gildardo Escobar Pre-Operative Diagnosis right knee primary osteoarthritis Post-Operative Diagnosis right knee primary osteoarthritis Procedure & Operative Findings Date of Procedure 05/05/21 Procedure Performed/Findings right total knee arthroplasty Anesthesia Type GETA Estimated Blood Loss Estimated blood loss (mL): minimal Specimens/Packing Specimens Removed none Packing: none RONAK RAMOS MD May 05, 2021 07:39
--- NOTE | 2021-05-05 07:41 | D/C HH Face to Face Order ---
D/C Face to Face Orders Reconcile Patient Problems Problems Reviewed?: Yes Instructions for Patient [facility] [employer], Patient Instructions/FollowUp: three weeks Physician to follow Patient: three weeks Discharge Diet for Home: Regular Diet Patient Data-Allergies,Ht & Wt Patient Allergies: Coded Allergies: hydrocodone (Verified Allergy, Mild, Hives, 11/16/20) Height (Feet): 5 Height (Inches): 7.00 Weight (Pounds): 246 Weight (Ounces): 7.0 Home Health Need/Face to Face Date of Face to Face: May 05, 2021 Clinical Findings: Muscle weakness, Pain with ambulation, Unsteady gait I have seen Pt [id number]-entg: Yes Discharged To: Home Diagnosis/Conditions: right total knee arthroplasty Patient is Homebound due to: Muscle weakness Homebound Status Due to the above stated illness, injury or surgical procedure (medical condition or diagnosis) and associated clinical findings, the patient is homebound because of his/her inability to leave home except with aid of a supportive device and/or person AND leaving the home requires a considerable and taxing effort or is medically contraindicated. Pt req the following assistanc: Walker Home Health Nursing Orders Home Health Services Order: Physical Therapy-Evaluate & Treat DC right knee yanira and apply steri strips 05/19/21 Home Health Infusion Therapy Line Start Date: May 05, 2021 Therapy Orders Therapy Orders: Physical Therapy, PT to assess for OT Therapy Specific Orders: Eval assistive deivces, Teach enviro modifications/safety, Gait training, Increase strength/endurance, Provider maintenance therapy, Restore ROM Certify Stmt I certify that this patient is under my care and that I, a nurse practitioner or a physician; a facilities assistant working with me, had a face to face encounter that - meets the physician face to face encounter requirements with this patient as dated. RONAK RAMOS MD May 05, 2021 07:41
[2021-05-05] MEDS ORDERED: INTRA-ARTICULAR IU ONE ×5 (08:00)
[2021-05-05] MEDS ORDERED: SEVOFLURANE (ULTANE) 15 ML INHAL SOLN ONE (09:12)
[2021-05-05] MEDS ORDERED: morphine INJ 10 MG/ML 1ML (SYR OR VIAL) IVP ONE (09:30)
[2021-05-05] MEDS ORDERED: morphine INJ 10 MG/ML 1ML (SYR OR VIAL) ONE (09:30)
[2021-05-05] MEDS ORDERED: ONDANSETRON 4 MG/2 ML (SDV) Z0FRAN IVP PRN (09:30)
[2021-05-05] MEDS ORDERED: fentaNYL INJ 100 MCG/2 ML AMP IVP ONE (09:30)
[2021-05-05] MEDS ORDERED: HYDROmorphone 2 MG/ML VIAL (DILAUDID) IV ONE (09:30)
[2021-05-05] MEDS ORDERED: HYDROmorphone 2 MG/ML VIAL (DILAUDID) ONE (09:46)
--- NOTE | 2021-05-05 09:46 | Diagnostic Imaging Report ---
Right knee in OR at 9:34 Indication: Postop total knee arthroplasty AP and lateral views of the right knee were received from the OR. The previous right knee exam of 06/13/2016 noted osteoarthritis but failed to show any sign of an acute abnormality. There is now total knee prosthesis in place. The prosthetic pump seem to be in good position. Skin yanira are also seen along the anterior aspect of the knee joint. There is gas in the soft tissues about the knee joint. There is no mass identified nor is any sign of a fracture. Impression: Stable postoperative right knee. Dictated by: Dictated on workstation # [id number]
--- NOTE | 2021-05-05 11:02 | Progress Note ---
Standard Progress Note Progress Notes/Assess & Plan Date Seen by a Provider: May 05, 2021 Time Seen by a Provider: 09:30 Progress/Assessment & Plan post op check no complaints radiographs--HW well aligned without fracture RLE-- 2 plus DP pulse with brisk cap refill intact DF and PF of toes and ankle with intact sensation to light touch throughout s/p RTKA mobilize as able RONAK RAMOS MD May 05, 2021 11:02
[2021-05-05] MEDS: ONDANSETRON 4 MG/2 ML (SDV) Z0FRAN IVP PRN ×2 (11:14→15:52)
[2021-05-05] MEDS: NS IV 1000 ML 1,000 ML IV SCH ×2 (11:17→20:39)
[2021-05-05] MEDS: SENNA W/DOCUSATE (SENOKOT S) TABLET PO SCH ×2 (11:18→20:39)
[2021-05-05] MEDS ORDERED: BUPIVACAINE 0.25% 30 ML (SENSORCAINE) VIAL ONE (12:27)
--- NOTE | 2021-05-05 13:32 | Physical Therapy Evaluation ---
PT Evaluation-General Medical Diagnosis Admission Date May 05, 2021 at 05:56 Medical Diagnosis: right TKA Onset Date: May 05, 2021 Therapy Diagnosis Therapy Diagnosis: impaired mobility, strength, endurance, ROM Height/Weight Height (Feet): 5 Height (Inches): 7.00 Weight (Pounds): 246 Weight (Ounces): 7.0 Weight Bear Status Right Lower Extremity: Right Weight Bearing/Tolerated Referral Physician: Shawn Reason for Referral: Evaluation/Treatment Medical History Additional Medical History PAST MEDICAL HISTORY: Hypothyroidism, fibromyalgia, diabetes, mitral valve prolapse, hyperlipidemia, hypertension. PAST SURGICAL HISTORY: Hysterectomy, lumbar spine and knee arthroscopy. Reviewed History: Yes Social History Home: Single Level Current Living Status: Spouse Entry Into Home: Ramp Prior Prior Level of Function SCALE: Activities may be completed with or without assistive devices. 9-Tzsrugeynf-wmajclj completes the activity by him/herself with no assistance from a helper. 5-Set-up or Clean-up Assistance-helper sets up or cleans up; patient completes activity. [place] assists only prior to or following the activity. 4-Supervision or Touching Assistance-helper provides verbal cues and/or touching/steadying and/or contact guard assistance as patient completes activity. Assistance may be provided throughout the activity or intermittently. 3-Partial/Moderate Assistance-helper does LESS THAN HALF the effort. [place] lifts, holds or supports trunk or limbs, but provides less than half the effort. 2-Substantial/Maximal Assistance-helper does MORE THAN HALF the effort. [place] lifts or holds trunk or limbs and provides more than half the effort. 2-Ohtcwehjw-prrbia does ALL the effort. Patient does none of the effort to complete the activity. Or, the assistance of 2 or more helpers is required for the patient to complete the activity. If activity was not attempted, code reason: 7-Patient Refused. 9-Not Applicable-not attempted and the patient did not perform the activity before the current illness, exacerbation or injury. 10-Not Attempted due to Environmental Limitations-(lack of equipment, weather restraints, etc.). 88-Not Attempted due to Medical Conditions or Safety Concerns. Bed Mobility: 6 Transfers (B,C,W/C): 6 Gait: 6 Stairs: 6 Indoor Mobility (Ambulation): Independent Stairs: Independent PT Evaluation-Current Subjective Patient in bed pre tx, agrees to PT but is currently vomiting into a basin. Has 5/10 pain in right knee. Will perform exercise protocol and don CPM. Pt/Family Goals to be independent at home Objective Patient Orientation: Person, Place, Situation Attachments: Polar Pack, IV ROM/Strength ROM Lower Extremities right knee extension +10 degrees, flexion 90 degrees Sensory Vision: Wears Glasses Hearing: Functional Sensation Right Lower Extremit: Impaired Sensation Left Lower Extremity: Intact Sensation Lower Extremities right LE still numb below knee Treatment RLE total knee protocol x10 (AP, QS, HS, SAQ, SLR), donned CPM and set to 50/-2 Assessment/Needs Patient in bed post tx with nurse call, phone, tray, all needs met. Still nauseated, threw up during and after evaluation. Rehab Potential: Fair PT Leaf Blender Goals Residential Goals PT Leaf Blender Goals Time Frame: May 12, 2021 Roll Left & Right (QC): 6 Sit to Lying (QC): 6 Lying-Sitting on Side/Bed(QC): 6 Sit to Stand (QC): 4 Chair/Bjd-lj-Oczmz Xfer(QC): 4 Walk 10 feet (QC): 4 Walk 50ft with 2 Turns (QC): 4 Walk 150 ft (QC): 4 PT Plan Problem List Problem List: Activity Tolerance, Functional Strength, Safety, Balance, Gait, Transfer, Bed Mobility, ROM Treatment/Plan Treatment Plan: Continue Plan of Care Treatment Plan: Bed Mobility, Education, Functional Activity Rach, Functional Strength, Gait, Safety, Therapeutic Exercise, Transfers Treatment Duration: May 12, 2021 Frequency: 11 times per week Estimated Hrs Per Day: .25 hour per day Patient and/or Family Agrees t: Yes Safety Risks/Education Patient Education: Reviewed Use of Ice, Correct Positioning, Safety Issues Teaching Recipient: Patient Teaching Methods: Demonstration, Discussion Response to Teaching: Reinforcement Needed Discharge Recommendations Plan Patient will perform bed mobility and transfer training, balance and endurance training, functional strengthening, stair training, gait training, and education, to improve functional mobility and independence at home. Therapy Discharge Recommendati: Home & Family, Post Acute PT Time/GCodes Time In: 1258 Time Out: 1314 Total Billed Treatment Time: 16 Total Billed Treatment 1 visit EVCORY WEBB PT May 05, 2021 13:32
--- NOTE | 2021-05-05 15:33 | OPERATIVE REPORT ---
DATE OF SERVICE: 05/05/2021 PREOPERATIVE DIAGNOSIS: Right knee primary osteoarthritis. POSTOPERATIVE DIAGNOSIS: Right knee primary osteoarthritis. PROCEDURE: Right total knee arthroplasty. SURGEON: Ferdinand Ramos MD WATER TANKER DRIVER: ARIANNA Coronel, who assisted throughout the procedure and closed the incision. ANESTHESIA: General endotracheal by Asia Moses CRNA. TOURNIQUET TIME: Approximately 60 minutes at 300 mmHg. ESTIMATED BLOOD LOSS: Minimal. DRAINS: None. COMPLICATIONS: None. POSTOPERATIVE PLAN: Routine protocol. The patient was transferred to the recovery room awake and in stable condition. MATERIALS: Microport, cemented size 5 femur, cemented size 5 tibia with 10 mm insert and cemented size 35 patellar button. STATEMENT OF MEDICAL NECESSITY: The patient is a 65-year-old female with longstanding right knee pain. Radiographs revealed severe medial and patellofemoral arthrosis. She has undergone treatment with injections as well as arthroscopy without relief. Due to functional impairment and failure to improve with conservative measures, the patient elected to proceed with surgical intervention. DESCRIPTION OF PROCEDURE: After risks and benefits of procedure were discussed and questions were answered, an informed consent was signed and placed on chart. The operative site was confirmed in the preoperative holding area and initialed by the surgeon. The patient was then transferred to the operating room and after adequate levels of general endotracheal anesthetic were obtained, a timeout was called, confirming the operative site. The right lower extremity was prepped and draped in the usual sterile fashion with the leg elevated and the knee flexed. Tourniquet was inflated to 300 mmHg. An anterior approach was utilized. Hemostasis was obtained with cautery. Medial parapatellar arthrotomy was performed leaving 1 cm cuff on the patella for later reattachment. A portion of the fat pad was resected. A subperiosteal release was performed on the proximal medial tibia being careful to stay on the bony surface. The ACL was resected. The intramedullary guide was passed into the femur. The distal cutting block was placed and distal cut was made. The femur was sized to a size 5, the 5 cutting block was placed parallel to the epicondylar axis and the cuts were made from posterior to anterior. A subperiosteal release was then performed on the posterior distal femur, being careful to stay on the bony surface with curved osteotome. The intramedullary guide was then passed into the tibial canal. The cutting block was placed. The drop marielle transected the intermalleolar axis and the cut was made. The 5-baseplate was placed and again the drop marielle transected the intermalleolar axis. This was prepared with the drill and keel punch. The femoral trial was placed and the trochlear cut was made with 10 mm insert was placed. The patella was then prepared by resecting 10 mm off the undersurface. The peg guide was placed and the peg holes were drilled the trials were inserted with 35 button. Full extension was easily obtained, 120 degrees of flexion with gravity was easily obtained. The patella tracked well. There was no anterior/posterior or medial/lateral laxity in flexion or extension. The trials were removed. The joint was irrigated with pulse lavage. The periarticular block was placed in the posterior capsule, medial and lateral retinaculum, extensor mechanism, and subcutaneous tissues. The bone ends were irrigated and dried. The tibial baseplate was cemented into position. Excessive cement was removed, the superior surface was irrigated and dried and the polyethylene insert was placed. Distal femur was irrigated and dried and the femoral prosthesis was cemented into position. Excessive cement was removed. The knee was brought out into full extension until the cement had cured. The undersurface of the patella was irrigated and dried. The patellar button was cemented into position. Excessive cement was removed. Once the cement had cured, the knee was taken through range of motion, full extension was easily obtained, 120 degrees of flexion with gravity was easily obtained. There was no anterior/posterior or medial/lateral laxity in flexion or extension. The joint was further irrigated with pulse lavage. The arthrotomy was closed with #2 Tevdek in rewomm-gj-wukrg interrupted fashion. The knee was flexed. Patella tracked well. There was no undue tension at the repair site. Subcutaneous tissues were irrigated with pulse lavage using a total of 6 liters throughout the procedure. A #0 Vicryl was used to close the deep subcutaneous layer, 2-0 Vicryl for the superficial subcutaneous layer, yanira used on the skin. A soft dressing was applied. The tourniquet was deflated and the patient was transferred to the recovery room awake and in stable condition. Job ID: [id number] DocumentID: [id number] Dictated Date: 05/05/2021 09:16:12 Envelope Folding Machine Adjuster Date: 05/05/2021 15:33:15 Dictated By: FERDINAND RAMOS MD
[2021-05-05] MEDS: CEFUROXIME INJECTION 750 MG in NS (IVPB) 50 ML IV SCH ×2 (15:52→23:55)
--- NOTE | 2021-05-05 19:00 | Consultation ---
History of Present Illness History of Present Illness Patient Consulted On(slade/time) 05/05/21 18:54 Date Seen by Provider: May 05, 2021 Time Seen by Provider: 12:30 History of Present Illness This is a 65 year old patient of mine who underwent right total knee arthroplasty by Dr. Gant today. I follow the patient for hypertension, hyperlipidemia, hypothyroidism, diabetes and depression. She currently has post-op nausea but her pain is well controlled. I am asked to consult for medical management. Allergies and Home Medications Allergies Coded Allergies: hydrocodone (Verified Allergy, Mild, Hives, 11/16/20) Patient Home Medication List Home Medication List Reviewed: Yes Amitriptyline HCl (Amitriptyline HCl) 50 Mg Tablet, 50 MG PO HS, (Reported) Entered as Reported by: COURTNEY MATHEWS on 08/17/16 1438 Last Action: Last Taken Edited Aspirin (Aspirin EC) 81 Mg Tablet.dr, 81 MG PO DAILY, (Reported) Entered as Reported by: DIONY WILLOUGHBY on 05/05/21 0647 Last Action: New Order Atorvastatin Calcium (Atorvastatin Calcium) 40 Mg Tablet, 40 MG PO HS, (Reported) Entered as Reported by: COURTNEY MATHEWS on 08/17/16 1438 Last Action: Last Taken Edited Estradiol (Estradiol Tablet) 1 Mg Tablet, 1 MG PO DAILY, (Reported) Entered as Reported by: SHERITA MERRILL on 04/28/211228 Last Action: Last Taken Edited Furosemide (Furosemide) 40 Mg Tablet, 20 MG PO DAILY, (Reported) Entered as Reported by: SHERITA MERRILL on 04/28/211228 Last Action: Last Taken Edited Levocetirizine Dihydrochloride (Levocetirizine Dihydrochloride) 5 Mg Tablet, 5 MG PO BID, (Reported) Entered as Reported by: SHERITA MERRILL on 04/28/211228 Last Action: Last Taken Edited Levothyroxine Sodium (Levothyroxine Sodium) 50 Mcg Tablet, 50 MCG PO DAILY, (Reported) Entered as Reported by: SHERITA MERRILL on 04/28/211228 Last Action: Last Taken Edited Metformin HCl (Metformin HCl) 500 Mg Tablet, 250 MG PO HS, (Reported) Entered as Reported by: COURTNEY MATHEWS on 08/17/161437 Last Action: Last Taken Edited Metoprolol Succinate (Metoprolol Succinate) 50 Mg Tab.er.24h, 50 MG PO HS, (Reported) Entered as Reported by: SHERITA MERRILL on 04/28/211228 Last Action: Last Taken Edited Mv-Mn/Folic Acid/Calcium/Vit K (Women's 50 Plus Multivit Tab) 1 Each Tablet, 1 EACH PO HS, (Reported) Entered as Reported by: SHERITA MERRILL on 04/28/211228 Last Action: Last Taken Edited [place] 3 Polyunsat Fatty Acids (Fish Oil 1,000 mg Capsule) 1,000 Mg Cap, 1,000 MG PO BID, (Reported) Entered as Reported by: SHERITA MERRILL on 04/28/211228 Last Action: Last Taken Edited Omeprazole/Sodium Bicarbonate (Zegerid Otc 20-1,100 mg Cap) 1 Each Capsule, 1 EACH PO HS, (Reported) Entered as Reported by: SHERITA MERRILL on 04/28/211228 Last Action: Last Taken Edited Discontinued Medications Duloxetine HCl (Duloxetine HCl) 60 Mg Capsule.dr, 60 MG PO HS, (Reported) Discontinued Reason: No Longer Taking Entered as Reported by: COURTNEY MATHEWS on 08/17/16 143 Estrogens, Conjugated (Premarin) 0.9 Mg Tablet, 0.9 MG PO DAILY, (Reported) Discontinued Reason: No Longer Taking Entered as Reported by: COURTNEY MATHEWS on 08/17/16 143 Fluoxetine HCl (Prozac) 20 Mg Capsule, 20 MG PO DAILY, (Reported) Discontinued Reason: No Longer Taking Entered as Reported by: COURTNEY MATHEWS on 08/17/16 143 Hydrocodone Bit/Acetaminophen (Lortab 5 Mg Tablet) 1 Each Tablet, 1 EACH PO Q4H PRN for PAIN Discontinued Reason: No Longer Taking Prescribed by: RONAK GANT on 08/24/16 0858 Levothyroxine Sodium (Levothyroxine Sodium) 75 Mcg Tablet, 75 MCG PO DAILY, (Reported) Discontinued Reason: Prescription changed Entered as Reported by: COURTNEY MATHEWS on 08/17/16 143 Metoprolol Succinate (Metoprolol Succinate) 100 Mg Tab.er.24h, 100 MG PO HS, (Reported) Discontinued Reason: Prescription changed Entered as Reported by: COURTNEY MATHEWS on 08/17/16 1438 Pregabalin (Lyrica) 100 Mg Capsule, 100 MG PO HS, (Reported) Discontinued Reason: No Longer Taking Entered as Reported by: COURTNEY MATHEWS on 08/17/16 1438 Past Hascobc-Zlwxgr-Fdsagh Hx Patient Social History Marrital Status: Employed/Student: employed Tobacco Use?: No Substance use?: No Alcohol Use?: No Pt feels they are or have been: No Immunizations Up To Date Date of Influenza Vaccine: Apr 07, 2021 First/Initial COVID19 Vaccinat: 08/01/20 Second COVID19 Vaccination Slade: 08/27/20 Date of Pneumonia Vaccine: Apr 05, 2019 Seasonal Allergies Seasonal Allergies: Yes Current Status Communicates: Verbally Primary Language: Emirati Preferred Spoken Language: Emirati Is interpretation needed?: No Sensory deficits: Vision impairment Past Medical History Surgeries: Hysterectomy, Orthopedic Currently Using CPAP: No Currently Using BIPAP: No Hypertension, Valvular Heart Disease Neuropathy 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 Sexually Transmitted Disease: No HIV/AIDS: No Gastroesophageal Reflux, Chronic Constipation Arthritis, Fibromyalgia Hypothyroidsim, Diabetes, Non-Insulin dep Hearing Impairment: Denies Blood Disorders: No Adverse Reaction/Blood Tranf: No (N/A) Family Medical History No Pertinent Family Hx Review of Systems Review of Systems General: No Chills, No Night Sweats, No Fatigue, No Malaise, No Appetite, No Other HEENT: No Head Aches, No Visual Changes, No Eye Pain, No Ear Pain, No Dysph raul, No Sinus Congestion, No Post Nasal Drip, No Sore Throat, No Other Pulmonary: No Dyspnea, No Cough, No Pleuritic Chest Pain, No Other Cardiovascular: No: Chest Pain, Palpitations, Orthopnea, Paroxysmal Noc. Dyspnea, Edema, Lt Headedness, Other Gastrointestinal: Nausea Genitourinary: No Dysuria, No Frequency, No Incontinence, No Hematuria, No Retention, No Other Musculoskeletal: leg pain Neurological: No: Weakness, Numbness, Incoordination, Change in speech, Confusion, Seizures, Other Physical Exam Vital Signs Vital Signs - First Documented 05/05/21 06:25 Temp 36.0 Pulse 73 Resp 18 B/P (MAP) 126/76 (93) Pulse Ox 97 O2 Delivery Room Air Capillary Refill : Less Than 3 Seconds Height, Weight, BMI Height: 5'7.00" Weight: 246lbs. 7.0oz. [id number]; 32.45 BMI Method:Stated General Appearance: Mild Distress HEENT: Normal ENT Inspection Neck: Supple Respiratory: Lungs Clear Cardiovascular: Regular Rate, Rhythm Gastrointestinal: Normal Bowel Sounds, Non Tender, Soft Rectal: Deferred Back: No CVA Tenderness Extremity: Non Tender, No Calf Tenderness, No Pedal Edema Neurologic/Psychiatric: Alert, Oriented x3 Skin: Warm/Dry Assessment/Plan Assessment/Plan Admission Dx 1. Right Total Knee Arthroplasty with current post-op nausea--scopolamine patch applied and has gotten yoli, will add pepcid for ulcer prophylaxis and to help dyspepsia, pain control, lovenox for DVT prophylaxis 2. Hypertension--restart metoprolol tonight 3. Hypothyroidism--restart levothyroxine in AM 4. DMII--start accuchecks with SSI A 5. Mixed Hyperlipidemia--resume atorvastatin Thank you very much for this consultation DEENA IBRAHIM DO May 05, 2021 19:00
[2021-05-05] MEDS: inSUlin ASPART (NovoLOG) 1 UNIT/0.01 ML (CHARGE PER UNIT) SC SCH (20:21)
[2021-05-05] MEDS: FAMOTIDINE 20MG/2ML IV (PEPCID) IVP SCH (20:39)
[2021-05-05] MEDS: meTOproloL SUCCINATE 50 MG (TOPROL XL) TAB PO SCH (20:39)
[2021-05-05] MEDS: oxyCODONE/APAP 5/325MG (PERCOCET 5) TABLET PO PRN (21:56)
[2021-05-06] VITALS: BP 136/72
[2021-05-06 04:43] VITALS: BP 125/77
[2021-05-06] MEDS: LEVOTHYROXINE 50 MCG (LEVOTHROID) TAB PO SCH (05:47)
[2021-05-06] MEDS: MULTIVIT W/MINERALS TAB (THERAGRAN M) PO SCH (05:47)
[2021-05-06 05:52] LABS: HEMOGLOBIN 10.6 g/dL (11.5-16.0)
[2021-05-06] MEDS: inSUlin ASPART (NovoLOG) 1 UNIT/0.01 ML (CHARGE PER UNIT) SC SCH ×4 (06:13→20:17)
[2021-05-06] MEDS: oxyCODONE/APAP 5/325MG (PERCOCET 5) TABLET PO PRN ×6 (06:33→20:21)
[2021-05-06] MEDS: ENOXAPARIN 30 MG/0.3 ML (LOVENOX) SYR SC SCH ×2 (07:45→20:20)
[2021-05-06] MEDS: ASPIRIN E.C. 81 MG (ECOTRIN) TAB PO SCH (07:46)
[2021-05-06] MEDS: SENNA W/DOCUSATE (SENOKOT S) TABLET PO SCH ×2 (07:46→20:21)
[2021-05-06] MEDS: FAMOTIDINE 20MG/2ML IV (PEPCID) IVP SCH (07:46)
[2021-05-06] MEDS: NS IV 1000 ML 1,000 ML IV SCH ×2 (07:46→15:40)
--- NOTE | 2021-05-06 07:58 | Progress Note ---
Standard Progress Note Progress Notes/Assess & Plan Date Seen by a Provider: May 06, 2021 Time Seen by a Provider: 07:57 Progress/Assessment & Plan post op check no complaints radiographs--HW well aligned without fracture RLE-- 2 plus DP pulse with brisk cap refill intact DF and PF of toes and ankle with intact sensation to light touch throughout s/p RTKA mobilize as able Final Diagnosis feeling better this AM Vital Signs Date Time Temp Pulse Resp B/P (MAP) Pulse Ox O2 Delivery O2 Flow Rate FiO2 05/06/21 07:31 18 05/06/21 05:49 20 05/06/21 04:43 37.1 83 20 125/77 (93) 92 Nasal Cannula 1.00 05/06/21 00:00 37.4 75 20 136/72 (93) 96 Nasal Cannula 1.00 05/05/21 23:22 Nasal Cannula 1.00 05/05/21 20:50 Nasal Cannula 1.00 05/05/21 20:32 36.7 60 20 153/70 (97) 99 Nasal Cannula 1.00 05/05/21 15:42 35.9 63 20 132/82 (99) 100 Nasal Cannula 1.00 05/05/21 14:03 35.6 59 18 132/74 (93) 96 Room Air 05/05/21 13:34 36.2 61 20 154/89 (110) 95 Room Air 05/05/21 12:00 36.1 66 20 133/83 (100) 94 Room Air 05/05/21 10:20 Nasal Cannula 1.00 05/05/21 10:05 36.2 14 116/74 (88) 100 Room Air 05/05/21 10:04 Room Air 05/05/21 10:00 22 110/71 (84) 98 Room Air 05/05/21 09:55 Room Air 05/05/21 09:50 24 119/64 (82) 98 Room Air 05/05/21 09:45 OxyMask 3 05/05/21 09:40 20 127/72 (90) 100 OxyMask 3 05/05/21 09:30 25 117/78 (91) 100 OxyMask 10 05/05/21 09:30 OxyMask 10 05/05/21 09:29 OxyMask 10 05/05/21 09:20 20 118/70 (86) 98 OxyMask 10 05/05/21 09:13 OxyMask 10 05/05/21 09:13 36.1 22 109/67 (81) 97 OxyMask 10 I & O 05/06/21 07:00 Intake Total 1680 ml Output Total 401 ml Balance 1279 ml Laboratory Tests Test 05/05/21 20:12 05/06/21 05:15 05/06/21 06:08 Range/Units Glucometer 140 H 103 70-110 MG/DL Hemoglobin 10.6 L 11.5-16.0 g/dL Hematocrit 32 L 35-52 % RLE--dressing intact NVI distally, No calf tenderness s/p RTKA PT/OT RONAK RAMOS MD May 06, 2021 07:57
[2021-05-06 08:00] VITALS: BP 123/58
--- NOTE | 2021-05-06 08:06 | Anesthesia-General Post-Op ---
General Patient Condition Mental Status/LOC: Same as Preop Cardiovascular: Satisfactory Nausea/Vomiting: Absent Respiratory: Satisfactory Pain: Controlled Complications: Absent Post Op Complications Complications None Follow Up Care/Instructions Patient Instructions None needed. Anesthesia/Patient Condition Patient Condition Patient is doing well, no complaints, stable vital signs, no apparent adverse anesthesia problems. No complications reported per nursing. JAMIN VUONG CRNA May 06, 2021 08:06
--- NOTE | 2021-05-06 08:47 | Progress Note ---
Subjective Subjective Date Seen by Provider: May 06, 2021 Time Seen by Provider: 08:41 Fwup Right TKA, HTN, Hypothyroidism, Hyperlipidemia. Vernell Is doing well today; she is advancing her diet as tolerated, currently eating soft foods and liquids. She states that her pain is a 4/10, and is well-controlled with pain medication. Post-op nausea is improved with scopolamine and zofran, and states she has not vomited today. She states she had a bowel movement last night. Vernell is working closely with physical therapy and is able to ambulate with assistance. Review of Systems General: No Chills, No Night Sweats, No Fatigue, No Malaise, No Appetite, No Other HEENT: No Head Aches, No Visual Changes, No Eye Pain, No Ear Pain, No Dysphasia, No Sinus Congestion, No Post Nasal Drip, No Sore Throat, No Other Pulmonary: No Dyspnea, No Cough, No Pleuritic Chest Pain, No Other Cardiovascular: No: Chest Pain, Palpitations, Orthopnea, Paroxysmal Noc. Dyspnea, Edema, Lt Headedness, Other Gastrointestinal: Nausea Genitourinary: No Dysuria, No Frequency, No Incontinence, No Hematuria, No Retention, No Other Musculoskeletal: leg pain Neurological: No: Weakness, Numbness, Incoordination, Change in speech, Confusion, Seizures, Other Objective Exam Vital Signs Vital Signs Date Time Temp Pulse Resp B/P (MAP) Pulse Ox O2 Delivery O2 Flow Rate FiO2 05/06/21 08:00 37.5 84 20 123/58 (79) 94 Nasal Cannula 1.00 05/06/21 07:31 18 05/06/21 05:49 20 05/06/21 04:43 37.1 83 20 125/77 (93) 92 Nasal Cannula 1.00 05/06/21 00:00 37.4 75 20 136/72 (93) 96 Nasal Cannula 1.00 05/05/21 23:22 Nasal Cannula 1.00 05/05/21 20:50 Nasal Cannula 1.00 05/05/21 20:32 36.7 60 20 153/70 (97) 99 Nasal Cannula 1.00 05/05/21 15:42 35.9 63 20 132/82 (99) 100 Nasal Cannula 1.00 05/05/21 14:03 35.6 59 18 132/74 (93) 96 Room Air 05/05/21 13:34 36.2 61 20 154/89 (110) 95 Room Air 05/05/21 12:00 36.1 66 20 133/83 (100) 94 Room Air 05/05/21 10:20 Nasal Cannula 1.00 05/05/21 10:05 36.2 14 116/74 (88) 100 Room Air 05/05/21 10:04 Room Air 05/05/21 10:00 22 110/71 (84) 98 Room Air 05/05/21 09:55 Room Air 05/05/21 09:50 24 119/64 (82) 98 Room Air 05/05/21 09:45 OxyMask 3 05/05/21 09:40 20 127/72 (90) 100 OxyMask 3 05/05/21 09:30 25 117/78 (91) 100 OxyMask 10 05/05/21 09:30 OxyMask 10 05/05/21 09:29 OxyMask 10 05/05/21 09:20 20 118/70 (86) 98 OxyMask 10 05/05/21 09:13 OxyMask 10 05/05/21 09:13 36.1 22 109/67 (81) 97 OxyMask 10 I & O 05/06/21 06:59 Intake Total 1680 ml Output Total 401 ml Balance 1279 ml General Appearance: No Apparent Distress, WD/WN Eyes: Bilateral Eye Normal Inspection, Bilateral Eye PERRL, Bilateral Eye EOMI HEENT: Normal ENT Inspection Neck: Supple Respiratory: Lungs Clear Cardiovascular: Regular Rate, Rhythm Gastrointestinal: Normal Bowel Sounds, Non Tender, Soft Rectal: Deferred Back: No CVA Tenderness Extremity: Non Tender, No Calf Tenderness, No Pedal Edema Neurologic/Psychiatric: Alert, Oriented x3 Skin: Normal Color, Warm/Dry, Other (right knee with dressing in place/and SAWYER hose in place--no calf tenderness) Results Lab Laboratory Tests 05/05/21 20:12: Glucometer 140H 05/06/21 05:15: Hemoglobin 10.6L, Hematocrit 32L 05/06/21 06:08: Glucometer 103 Meds Item Value Date Time Aspirin 81 mg 05/06/21 0900 (Ecotrin Tablet) DAILY/PO 05/06/21 0746 Enoxaparin Sodium 30 mg 05/06/21 0800 (Lovenox BID@0800,2000/SC 05/06/21 0745 Injection) Multivitamins/ 1 ea 05/06/21 0700 Minerals DAILY@0700/PO 05/06/21 0547 Therapeutic (Vitamins, Multi w/Minerals Tablet) Levothyroxine 50 mcg 05/06/21 0630 Sodium DAILY@0630/PO 05/06/21 0547 (Synthroid Tablet) Atorvastatin 40 mg 05/05/212099 Calcium HS/PO 05/05/212038 (Lipitor Tablet) Metoprolol 50 mg 05/05/21 2100 Succinate HS/PO 05/05/212038 (Toprol Xl Tablet) Famotidine 20 mg 05/05/212099 (Pepcid BID/IVP 05/06/21 0746 Injection) Insulin Aspart SLIDING SCALE A BLOO... 05/05/211999 (NovoLOG (CHARGE [id number]/SC PER UNIT)) Ondansetron HCl 4 mg 05/05/21 0930 (Zofran Q10M PRN/IVP Injection (Sdv)) Senna 2 ea 05/05/21 0900 (Senokot S BID/PO 05/06/21 0746 Tablet) Diphenhydramine 25 mg 05/05/21 0715 HCl Q4H PRN/IVP (Benadryl Injection) Ondansetron HCl 4 mg 05/05/21 0715 (Zofran Q4H PRN/IVP 05/05/21 1552 Injection (Sdv)) Oxycodone/ 1 tab 05/05/21 0715 Acetaminophen Q2HR PRN/PO 05/06/21 0633 (Percocet 5/325 Mg Tablet) Morphine Sulfate LOADING DOSE: 3 MG DOS... 05/05/21 0715 (morphine (SUBSYSTEMS ENGINEER) PRN PRN/IV 05/05/21 1117 1 MG/ML 100 ML) Naloxone HCl 0.1 mg 05/05/21 0715 (Narcan PRN PRN/IV Injection) Sodium Chloride 1,000 ml @ 80 mls/hr 05/05/21 0715 Lactated Ringer's 1,000 ml @ 0 mls/hr 05/05/21 0630 Assessment/Plan Assessment/Plan Assessment and Plan 1. S/p R total knee arthroplasty Continue Lovenox, aspirin Physical therapy, with ambulation Pain medication PRN Zofran and scopolamine patch prn nausea 2. HTN--metoprolol restarted 3. HLD 4. Hypothyroidism--levothyroxine restarted 5. Diabetes--on accuchecks with SSI 6. Depression--resume home meds 7. Post-op anemia--monitor H/H Supervisory-Addendum Brief Verification & Attestation Participated in pt care: history, physical Personally performed: exam, history, supervision of care Care discussed with: Medical Student Procedures: n/a I saw patient and added to above note. Agree with above assessment and plan. Patient was up in room using walker and working with PT. Hopefully DC tomorrow per ortho. ANTONIO LANCASTER May 06, 2021 08:47 DEENA IBRAHIM DO May 06, 2021 17:43
--- NOTE | 2021-05-06 10:06 | Physical Therapy Daily Note ---
PT Daily Note-Current Subjective Patient is very agreeable to participate with therapy. Pain Numeric Pain Scale: 5-Moderate Pain Location: Right Location Body Site: Knee Pain Description: Acute Comment: with meds and HOME DECORATOR issued Mental Status Patient Orientation: Normal For Age Attachments: Polar Pack, IV Transfers SCALE: Activities may be completed with or without assistive devices. 5-Pwtpexypcl-mjutiqo completes the activity by him/herself with no assistance from a helper. 5-Set-up or Clean-up Assistance-helper sets up or cleans up; patient completes activity. [place] assists only prior to or following the activity. 4-Supervision or Touching Assistance-helper provides verbal cues and/or touching/steadying and/or contact guard assistance as patient completes activity. Assistance may be provided throughout the activity or intermittently. 3-Partial/Moderate Assistance-helper does LESS THAN HALF the effort. [place] lifts, holds or supports trunk or limbs, but provides less than half the effort. 2-Substantial/Maximal Assistance-helper does MORE THAN HALF the effort. [place] lifts or holds trunk or limbs and provides more than half the effort. 6-Rxqyxablj-vpjoxx does ALL the effort. Patient does none of the effort to complete the activity. Or, the assistance of 2 or more helpers is required for the patient to complete the activity. If activity was not attempted, code reason: 7-Patient Refused. 9-Not Applicable-not attempted and the patient did not perform the activity before the current illness, exacerbation or injury. 10-Not Attempted due to Environmental Limitations-(lack of equipment, weather restraints, etc.). 88-Not Attempted due to Medical Conditions or Safety Concerns. Lying to Sitting/Side of Bed(Q: 6 Sit to Stand (QC): 4 Chair/Yjs-tc-Uakhv Xfer(QC): 4 Toilet Transfer (QC): 4 SBA with upright mobility Weight Bearing Right Lower Extremity: Right Weight Bearing/Tolerated Gait Training Does the Patient Walk?: Yes Distance: 250' Walk 10 feet (QC): 4 Walk 50 ft with 2 Turns(QC): 4 Walk 150 ft (QC): 4 Gait Assistive Device: FWW steady, step to gait sequence Exercises Supine Ex: Ankle pumps, Quad Set, Heel Slides, Straight leg raise Supine Reps: 15 Seated Therapy Exercises: Long arc quads Seated Reps: 15 Assessment Patient progressing per protocol and will dismiss to home tomorrow with family. Patient highly motivated with progress. Increase activity as tolerated by patient. PT Prison Goals Prison Goals PT Soil Expert Goals Time Frame: May 12, 2021 Roll Left & Right (QC): 6 Sit to Lying (QC): 6 Lying-Sitting on Side/Bed(QC): 6 Sit to Stand (QC): 4 Chair/Keo-ff-Nfeou Xfer(QC): 4 Walk 10 feet (QC): 4 Walk 50ft with 2 Turns (QC): 4 Walk 150 ft (QC): 4 PT Plan Treatment/Plan Treatment Plan: Continue Plan of Care Treatment Plan: Bed Mobility, Education, Functional Activity Rach, Functional Strength, Gait, Safety, Therapeutic Exercise, Transfers Treatment Duration: May 12, 2021 Frequency: 11 times per week Estimated Hrs Per Day: .25 hour per day Patient and/or Family Agrees t: Yes Time/GCodes Time In: 824 Time Out: 847 Total Billed Treatment Time: 23 Total Billed Treatment 1 visit EX 9 min GT 14 min CRICKET ELLIS PT May 06, 2021 10:06
--- NOTE | 2021-05-06 10:35 | Occupational Therapy Eval ---
OT Evaluation-General/PLF Medical Diagnosis Admission Date May 05, 2021 at 05:56 Medical Diagnosis: right TKA Onset Date: May 05, 2021 Therapy Diagnosis Therapy Diagnosis: decreased ADL status Height/Weight Height (Feet): 5 Height (Inches): 7.00 Weight (Pounds): 246 Weight (Ounces): 7.0 Referral Physician: Shawn Referral Reason: Evaluation/Treatment Medical History Additional Medical History Hypothyroidism, fibromyalgia, diabetes, mitral valve prolapse, hyperlipidemia, hypertension. Hysterectomy, lumbar spine and knee arthroscopy. Current History s/p R TKA 05/05/21 Social History Home: Single Level Current Living Status: Spouse Entry Into Home: Ramp ADL-Prior Level of Function SCALE: Activities may be completed with or without assistive devices. 8-Asteocelux-fzonlqg completes the activity by him/herself with no assistance from a helper. 5-Set-up or Clean-up Assistance-helper sets up or cleans up; patient completes activity. [place] assists only prior to or following the activity. 4-Supervision or Touching Assistance-helper provides verbal cues and/or touching/steadying and/or contact guard assistance as patient completes activity. Assistance may be provided throughout the activity or intermittently. 3-Partial/Moderate Assistance-helper does LESS THAN HALF the effort. [place] lifts, holds or supports trunk or limbs, but provides less than half the effort. 2-Substantial/Maximal Assistance-helper does MORE THAN HALF the effort. [place] lifts or holds trunk or limbs and provides more than half the effort. 6-Uelqyghnl-wtsouc does ALL the effort. Patient does none of the effort to complete the activity. Or, the assistance of 2 or more helpers is required for the patient to complete the activity. If activity was not attempted, code reason: 7-Patient Refused. 9-Not Applicable-not attempted and the patient did not perform the activity before the current illness, exacerbation or injury. 10-Not Attempted due to Environmental Limitations-(lack of equipment, weather restraints, etc.). 88-Not Attempted due to Medical Conditions or Safety Concerns. ADL PLOF Comments During conversation, pt indicates she needed help with self care at PLOF but didn't elaborate on how much assistance she needed or with what. With further discussion, pt states she is independent with bathing, dressing and toileting. Self Care: Independent Functional Cognition: Independent DME/Equipment: Bath Bench, Bath Chair, Tub/Shower DME/Equipment Comments FWW. owns w/c but doesn't use OT Current Status Subjective Pt laying in bed, states she was up with PT earlier, but then felt a little nauseous. Pt does not verbalize pain rating Mental Status/Objective Patient Orientation: Person, Place, Time, Situation Attachments: IV Current Upper Extremity ROM WFL Upper Extremity Coordination WFL ADL-Treatment Eating (QC): 6 (per clincial judgment.) Oral Hygiene (QC): 5 (per clincial judgment.) Toileting Hygiene (QC): 4 (Per pt report SBA.) Other Treatments Pt laying in bed, states she just returned to bed after being up in the chair a little bit. Pt asks appropriate questions about ADL performance at discharge, asking what needed to be done in order to shower, and benefits of bath bench vs shower chair as she owns both. OT answered pt questions and also provided some information about AE for LE dressing. Pt agreeable to continued OT services in order to provide further education and practice with AE and address any other concerns pt may have. Per PT note, pt is currently SBA with ambulation, 250' using FWW. Post tx, pt in bed, call light in reach and all needs met. Education OT Patient Education: Correct positioning, Modified ADL techniques, Progress toward Goal/Update tx plan, Purpose of tx/functional activities, Rehab process Teaching Recipient: Patient Teaching Methods: Discussion Response to Teaching: Verbalize Understanding OT Longterm Goals Longterm Goals Time Frame: May 14, 2021 Eating (QC): 6 Oral Hygiene (QC): 6 Toileting Hygiene (QC): 6 Shower/Bathe Self (QC): 4 Upper Body Dressing (QC): 5 Lower Body Dressing (QC): 4 On/Off Footwear (QC): 4 Additional Goals: 1-Demonstrate ADL Tasks, 2-Verbalize Understanding, 3- ImproveStrength/Rach 1=Demonstrate adherence to instructed precautions during ADL tasks. 2=Patient will verbalize/demonstrate understanding of assistive devices/modifications for ADL. 3=Patient will improve strength/tolerance for activity to enable patient to perform ADL's. OT Education/Plan Problem List/Assessment Assessment: Decreased Activ Tolerance, Decreased UE Strength, Impaired Funct Balance, Impaired I ADL's, Impaired Self-Care Skills Pt would benefit from short term skilled OT services for education on AE for LE dressing and to address any concerns pt may have with ADL function upon discharge. Discharge Recommendations Plan/Recommendations: Continue POC Treatment Plan/Plan of Care Patient would benefit from OT for education, treatment and training to promote independence in ADL's, mobility, safety and/or upper extremity function for ADL's. Plan of Care: ADL Retraining, Functional Mobility, UE Funct Exercise/Act Treatment Duration: May 14, 2021 Frequency: 3 times per week (3-5 times per week) Rehab Potential: Fair Time/GCodes Start Time: 10:04 Stop Time: 10:14 Total Time Billed (hr/min): 10 Billed Treatment Time 1, DANAE MC OT May 06, 2021 10:35
[2021-05-06 11:46] VITALS: BP 132/67
--- NOTE | 2021-05-06 14:35 | Physical Therapy Daily Note ---
PT Daily Note-Current Subjective Patient agrees to PT. Pain Numeric Pain Scale: 5-Moderate Pain Location: Right Location Body Site: Knee Pain Description: Acute Mental Status Patient Orientation: Normal For Age Attachments: Polar Pack, IV Transfers SCALE: Activities may be completed with or without assistive devices. 6-Dzumhdxghe-mixdntz completes the activity by him/herself with no assistance from a helper. 5-Set-up or Clean-up Assistance-helper sets up or cleans up; patient completes activity. [place] assists only prior to or following the activity. 4-Supervision or Touching Assistance-helper provides verbal cues and/or touching/steadying and/or contact guard assistance as patient completes activity. Assistance may be provided throughout the activity or intermittently. 3-Partial/Moderate Assistance-helper does LESS THAN HALF the effort. [place] lifts, holds or supports trunk or limbs, but provides less than half the effort. 2-Substantial/Maximal Assistance-helper does MORE THAN HALF the effort. [place] lifts or holds trunk or limbs and provides more than half the effort. 8-Tmsxnraii-yybbtk does ALL the effort. Patient does none of the effort to complete the activity. Or, the assistance of 2 or more helpers is required for the patient to complete the activity. If activity was not attempted, code reason: 7-Patient Refused. 9-Not Applicable-not attempted and the patient did not perform the activity before the current illness, exacerbation or injury. 10-Not Attempted due to Environmental Limitations-(lack of equipment, weather restraints, etc.). 88-Not Attempted due to Medical Conditions or Safety Concerns. Sit to Lying (QC): 6 Lying to Sitting/Side of Bed(Q: 6 Sit to Stand (QC): 6 Chair/Sjm-lp-Zibwk Xfer(QC): 6 Toilet Transfer (QC): 6 Weight Bearing Right Lower Extremity: Right Weight Bearing/Tolerated Gait Training Distance: 300' Walk 10 feet (QC): 4 Walk 50 ft with 2 Turns(QC): 4 Walk 150 ft (QC): 4 Gait Assistive Device: FWW VC's for weight bearing right LE/noted flexed right knee posture with difficulty with extension in stand Exercises Supine Ex: Ankle pumps, Quad Set, Heel Slides, Straight leg raise Supine Reps: 12 Seated Therapy Exercises: Long arc quads Seated Reps: 12 Assessment Patient progressing with treatment plan. Patient up with family in room PRN. Rn notified. PT Assisted Goals Assisted Goals PT Assisted Goals Time Frame: May 12, 2021 Roll Left & Right (QC): 6 Sit to Lying (QC): 6 Lying-Sitting on Side/Bed(QC): 6 Sit to Stand (QC): 4 Chair/Vmp-ue-Qcejl Xfer(QC): 4 Walk 10 feet (QC): 4 Walk 50ft with 2 Turns (QC): 4 Walk 150 ft (QC): 4 PT Plan Treatment/Plan Treatment Plan: Continue Plan of Care Treatment Plan: Bed Mobility, Education, Functional Activity Rach, Functional Strength, Gait, Safety, Therapeutic Exercise, Transfers Treatment Duration: May 12, 2021 Frequency: 11 times per week Estimated Hrs Per Day: .25 hour per day Patient and/or Family Agrees t: Yes Time/GCodes Time In: 1331 Time Out: 1354 Total Billed Treatment Time: 23 Total Billed Treatment 1 visit EX 14 min GT 9 min CRICKET ELLIS PT May 06, 2021 14:35
[2021-05-06 15:37] VITALS: BP 141/66
[2021-05-06 19:45] VITALS: BP 137/64
[2021-05-06] MEDS: FAMOTIDINE 20 MG (PEPCID) TABLET PO SCH (20:21)
[2021-05-06] MEDS: meTOproloL SUCCINATE 50 MG (TOPROL XL) TAB PO SCH (20:21)
[2021-05-07] MEDS: oxyCODONE/APAP 5/325MG (PERCOCET 5) TABLET PO PRN ×3 (00:22→10:29)
[2021-05-07 00:45] VITALS: BP 128/68
[2021-05-07] MEDS: NS IV 1000 ML 1,000 ML IV SCH (03:25)
[2021-05-07 04:30] VITALS: BP 131/77
[2021-05-07] MEDS: inSUlin ASPART (NovoLOG) 1 UNIT/0.01 ML (CHARGE PER UNIT) SC SCH ×2 (05:26→08:11)
[2021-05-07] MEDS: LEVOTHYROXINE 50 MCG (LEVOTHROID) TAB PO SCH (06:12)
[2021-05-07] MEDS: MULTIVIT W/MINERALS TAB (THERAGRAN M) PO SCH (06:12)
--- NOTE | 2021-05-07 07:02 | Progress Note ---
Standard Progress Note Progress Notes/Assess & Plan Date Seen by a Provider: May 07, 2021 Time Seen by a Provider: 06:51 Progress/Assessment & Plan post op check no complaints radiographs--HW well aligned without fracture RLE-- 2 plus DP pulse with brisk cap refill intact DF and PF of toes and ankle with intact sensation to light touch throughout s/p RTKA mobilize as able Final Diagnosis no complaints Vital Signs Date Time Temp Pulse Resp B/P (MAP) Pulse Ox O2 Delivery O2 Flow Rate FiO2 05/07/21 04:30 37.2 88 16 131/77 (95) 96 Room Air 05/07/21 01:38 37.2 05/07/21 00:45 38.3 85 18 128/68 (88) 95 Room Air 05/06/21 20:25 Room Air 05/06/21 20:23 18 05/06/21 19:45 37.2 85 18 137/64 (88) 96 Room Air 05/06/21 15:37 37.4 76 20 141/66 (91) 95 Room Air 05/06/21 11:46 37.3 79 20 132/67 (88) 99 Room Air 05/06/21 09:03 Room Air 05/06/21 08:00 37.5 84 20 123/58 (79) 94 Nasal Cannula 1.00 05/06/21 07:31 18 I & O 05/07/21 06:59 Intake Total 1568 ml Output Total 1600 ml Balance -32 ml Laboratory Tests Test 05/06/21 11:07 05/06/21 15:12 05/06/21 20:13 05/07/21 05:03 Range/Units Glucometer 158 H 105 101 117 H 70-110 MG/DL RLE--incision clean and dry. No calf tenderness. Neg Adal's s/p RTKA doing well DC home after PT today RONAK RAMOS MD May 07, 2021 07:02
[2021-05-07] MEDS ORDERED: morphine INJ 4 MG/ML 1 ML (VIAL/SYRINGE) IVP PRN (07:15)
[2021-05-07 08:10] VITALS: BP 132/74
[2021-05-07] MEDS: ENOXAPARIN 30 MG/0.3 ML (LOVENOX) SYR SC SCH (08:11)
[2021-05-07] MEDS: FAMOTIDINE 20 MG (PEPCID) TABLET PO SCH (08:11)
[2021-05-07] MEDS: ASPIRIN E.C. 81 MG (ECOTRIN) TAB PO SCH (08:11)
[2021-05-07] MEDS: SENNA W/DOCUSATE (SENOKOT S) TABLET PO SCH (08:11)
--- NOTE | 2021-05-07 10:00 | DISCHARGE SUMMARY ---
DATE OF SERVICE: DIAGNOSES: 1. Right knee primary osteoarthritis. 2. Hypothyroidism. 3. Fibromyalgia. 4. Diabetes. 5. Mitral valve prolapse. 6. Hyperlipidemia. 7. Hypertension. PROCEDURE: Right total knee arthroplasty. SUMMARY: The patient is a 65-year-old female who underwent a right total knee arthroplasty on the day of admission. Postoperatively, she did very well. At the time of discharge, her wound was clean and dry. She had no calf tenderness, negative Homans sign. She was tolerating a diet well and tolerating pain with oral pain medication. CONDITION AT DISCHARGE: Good. DISCHARGE DIET: Regular. FOLLOWUP: Followup is in 3 weeks. DISCHARGE MEDICATIONS: Home medications, Percocet as needed for pain and one aspirin per day for 1 month. Job ID: [id number] DocumentID: [id number] Dictated Date: 05/06/2021 16:37:10 Search Engine Optimization Analyst Date: 05/07/2021 09:59:28 Dictated By: RONAK RAMOS MD
--- NOTE | 2021-05-07 10:01 | Progress Note ---
Subjective Subjective Date Seen by Provider: May 07, 2021 Time Seen by Provider: 09:00 This is a follow-up of Right TKA, HTN, Hypothyroidism, and Hyperlipidemia. Vernell continues to do well; she is advancing her diet as tolerated, currently eating soft foods and liquids. She states that her pain is improved, and is well- controlled with pain medication. Post-op nausea is improved with zofran and scopolamine patch, which is in place behind left ear. Has not had a bowel movement in the past 24 hours, but states that her abdomen is gurgling and active, and that she has not had much solid food. Vernell is working closely with physical therapy and is able to ambulate with assistance. She is accompanied by her daughter, and states she is ready to go home. Review of Systems General: No Chills, No Night Sweats, No Fatigue, No Malaise, No Appetite, No Other HEENT: No Head Aches, No Visual Changes, No Eye Pain, No Ear Pain, No Dysphasia, No Sinus Congestion, No Post Nasal Drip, No Sore Throat, No Other Pulmonary: No Dyspnea, No Cough, No Pleuritic Chest Pain, No Other Cardiovascular: No: Chest Pain, Palpitations, Orthopnea, Paroxysmal Noc. Dyspnea, Edema, Lt Headedness, Other Gastrointestinal: Nausea (improved); No: Vomiting Genitourinary: No Dysuria, No Frequency, No Incontinence, No Hematuria, No Retention, No Other Musculoskeletal: leg pain (R knee) Neurological: No: Weakness, Numbness, Incoordination, Change in speech, Confusion, Seizures, Other Objective Exam Vital Signs Vital Signs Date Time Temp Pulse Resp B/P (MAP) Pulse Ox O2 Delivery O2 Flow Rate FiO2 05/07/21 08:10 37.0 86 18 132/74 (93) 95 Room Air 05/07/21 04:30 37.2 88 16 131/77 (95) 96 Room Air 05/07/21 01:38 37.2 05/07/21 00:45 38.3 85 18 128/68 (88) 95 Room Air 05/06/21 20:25 Room Air 05/06/21 20:23 18 05/06/21 19:45 37.2 85 18 137/64 (88) 96 Room Air 05/06/21 15:37 37.4 76 20 141/66 (91) 95 Room Air 05/06/21 11:46 37.3 79 20 132/67 (88) 99 Room Air I & O 05/07/21 06:59 Intake Total 1568 ml Output Total 1600 ml Balance -32 ml General Appearance: No Apparent Distress, WD/WN Eyes: Bilateral Eye Normal Inspection, Bilateral Eye PERRL, Bilateral Eye EOMI HEENT: Normal ENT Inspection Neck: Normal Inspection, Supple Respiratory: Lungs Clear, Normal Breath Sounds Cardiovascular: Regular Rate, Rhythm Gastrointestinal: Normal Bowel Sounds, Non Tender, Soft Rectal: Deferred Back: No CVA Tenderness Extremity: Non Tender, No Calf Tenderness, No Pedal Edema Neurologic/Psychiatric: Alert, Oriented x3 Skin: Normal Color, Warm/Dry, Other (right knee with dressing in place/and SAWYER hose in place--no calf tenderness) Results Lab Laboratory Tests 05/06/21 11:07: Glucometer 158H 05/06/21 15:12: Glucometer 105 05/06/21 20:13: Glucometer 101 05/07/21 05:03: Glucometer 117H Meds Item Value Date Time Morphine Sulfate 2 mg 05/07/21 0715 (morphine Q2H PRN/IVP INJECTION) Famotidine 20 mg 05/06/21 2100 (Pepcid Tablet) BID/PO 05/07/21 0811 Aspirin 81 mg 05/06/21 0900 (Ecotrin Tablet) DAILY/PO 05/07/21 0811 Enoxaparin Sodium 30 mg 05/06/21 0800 (Lovenox BID@0800,2000/SC 05/07/21 0811 Injection) Multivitamins/ ea 05/06/21 0700 Minerals DAILY@0700/PO 05/07/21 0612 Therapeutic (Vitamins, Multi w/Minerals Tablet) Levothyroxine 50 mcg 05/06/21 0630 Sodium DAILY@0630/PO 05/07/21 0612 (Synthroid Tablet) Atorvastatin 40 mg 05/05/21 2100 Calcium HS/PO 05/06/212020 (Lipitor Tablet) Metoprolol 50 mg 05/05/21 2100 Succinate HS/PO 05/06/212020 (Toprol Xl Tablet) Insulin Aspart SLIDING SCALE A BLOO... 05/05/211999 (NovoLOG (CHARGE UGUAMIS0RR/SC PER UNIT)) Ondansetron HCl 4 mg 05/05/21 0930 (Zofran Q10M PRN/IVP Injection (Sdv)) Senna 2 ea 05/05/21 0900 (Senokot S BID/PO 05/07/21 0811 Tablet) Diphenhydramine 25 mg 05/05/21 0715 HCl Q4H PRN/IVP (Benadryl Injection) Ondansetron HCl 4 mg 05/05/21 0715 (Zofran Q4H PRN/IVP 05/05/21 1552 Injection (Sdv)) Oxycodone/ 1 tab 05/05/21 0715 Acetaminophen Q2HR PRN/PO 05/07/21 0813 (Percocet 5/325 Mg Tablet) Naloxone HCl 0.1 mg 05/05/21 0715 (Narcan PRN PRN/IV Injection) Assessment/Plan Assessment/Plan Assessment and Plan 1. S/P R total knee arthroplasty Physical therapy, with ambulation Continue aspirin, Lovenox PO pain medication PPA Zofran PRN nausea Hold estradiol for 3 weeks; discussed risks of blood clots with patient 2. HTN--metoprolol restarted 3. HLD 4. Hypothyroidism--levothyroxine restarted 5. Diabetes--on accuchecks with SSI 6. Depression--resume home meds 7. Post-op anemia--monitor H/H Supervisory-Addendum Brief Verification & Attestation Participated in pt care: history, physical Personally performed: exam, history, supervision of care Care discussed with: Medical Student Procedures: n/a Results interpretation: Verified all documentation Patient seen and assessed. Agree with above. She is going home with Home Health and her daughter will be staying with her for a few weeks. I told her to hold her estradiol for the next few weeks to decrease the risk of DVT. I will fwup with her in 4 weeks. ANTONIO LANCASTER May 07, 2021 10:01 DEENA IBRAHIM DO May 07, 2021 10:33
--- NOTE | 2021-05-07 10:02 | Physical Therapy Daily Note ---
PT Daily Note-Current Subjective Patient reports she is ready to go home! Agrees to PT. Mental Status Patient Orientation: Normal For Age Transfers SCALE: Activities may be completed with or without assistive devices. 1-Vtchcypkki-gumkdsh completes the activity by him/herself with no assistance from a helper. 5-Set-up or Clean-up Assistance-helper sets up or cleans up; patient completes activity. [place] assists only prior to or following the activity. 4-Supervision or Touching Assistance-helper provides verbal cues and/or touc rupert/steadying and/or contact guard assistance as patient completes activity. Assistance may be provided throughout the activity or intermittently. 3-Partial/Moderate Assistance-helper does LESS THAN HALF the effort. [place] lifts, holds or supports trunk or limbs, but provides less than half the effort. 2-Substantial/Maximal Assistance-helper does MORE THAN HALF the effort. [place] lifts or holds trunk or limbs and provides more than half the effort. 8-Nexxthqly-dmuwtv does ALL the effort. Patient does none of the effort to complete the activity. Or, the assistance of 2 or more helpers is required for the patient to complete the activity. If activity was not attempted, code reason: 7-Patient Refused. 9-Not Applicable-not attempted and the patient did not perform the activity before the current illness, exacerbation or injury. 10-Not Attempted due to Environmental Limitations-(lack of equipment, weather restraints, etc.). 88-Not Attempted due to Medical Conditions or Safety Concerns. Sit to Stand (QC): 6 Toilet Transfer (QC): 6 Weight Bearing Right Lower Extremity: Right Weight Bearing/Tolerated Gait Training Distance: 275' Walk 10 feet (QC): 6 Walk 50 ft with 2 Turns(QC): 6 Walk 150 ft (QC): 6 Gait Assistive Device: FWW continues to have difficulty with weight bearing right LE due to pain. VC's for weight bearing and to extend knee with ambulation Exercises Seated Therapy Exercises: Ankle pumps, Long arc quads Seated Reps: 15 Assessment Education with patient on importance of continuing HEP and to ambulate PRN. Patient to dismiss to home with daughter. PT Child Welfare Assistant Goals Child Welfare Assistant Goals PT Half-Way Goals Time Frame: May 12, 2021 Roll Left & Right (QC): 6 Sit to Lying (QC): 6 Lying-Sitting on Side/Bed(QC): 6 Sit to Stand (QC): 4 Chair/Dqx-dx-Gshav Xfer(QC): 4 Walk 10 feet (QC): 4 Walk 50ft with 2 Turns (QC): 4 Walk 150 ft (QC): 4 PT Plan Treatment/Plan Treatment Plan: Discontinue PT, goals met Treatment Plan: Bed Mobility, Education, Functional Activity Rach, Functional Strength, Gait, Safety, Therapeutic Exercise, Transfers Treatment Duration: May 12, 2021 Frequency: 11 times per week Estimated Hrs Per Day: .25 hour per day Patient and/or Family Agrees t: Yes Time/GCodes Time In: 740 Time Out: 759 Total Billed Treatment Time: 19 Total Billed Treatment 1 visit FA 19 min CRICKET ELLIS PT May 07, 2021 10:02
[2021-05-07 10:48] VITALS: BP 132/74
== END 2021-05-07 10:50 | disposition home health service (06) | DRG 470 ==
LOC: 4TH 05:56 → SURG 05:57 → 4TH 10:06
PROVIDERS: ADMIT Orthopaedic Surgery; ATTEND Orthopaedic Surgery
PROC: 0SRC0J9 Replacement of Right Knee Joint with Synthetic Substitute, Cemented, Open Approach (ICD-10-PCS; principal; 2021-05-05 07:35)
DX: M17.11 Unilateral primary osteoarthritis, right knee (principal); E03.9 Hypothyroidism, unspecified; M79.7 Fibromyalgia; F32.A Depression, unspecified; E11.9 Type 2 diabetes mellitus without complications; I34.1 Nonrheumatic mitral (valve) prolapse; D64.9 Anemia, unspecified; I10 Essential (primary) hypertension; E78.2 Mixed hyperlipidemia; Z87.891 Personal history of nicotine dependence; Z82.49 Family history of ischemic heart disease and other diseases of the circulatory system; Z88.6 Allergy status to analgesic agent; Z79.84 Long term (current) use of oral hypoglycemic drugs; Z79.899 Other long term (current) drug therapy
CPT/HCPCS: 36415; 73560; 82947; 85014; 85018; 86850; 86900; 86901

== ENCOUNTER 2021-06-02 15:17 | Outpatient (RCR) | payer MEDICARE, OTHER ==
[~2021-06-02 15:17] MED LIST changes: +ASPI-1238 PO
== END 2021-06-04 | disposition home or self-care (01) ==
PROVIDERS: ATTEND Orthopaedic Surgery
DX: M17.11 Unilateral primary osteoarthritis, right knee (principal); Z96.651 Presence of right artificial knee joint

== ENCOUNTER 2021-06-25 11:34 | Outpatient (RCR) | payer MEDICARE, OTHER | END 2021-06-25 12:01 | disposition home or self-care (01) | PROVIDERS: ATTEND Orthopaedic Surgery | DX: M17.11 Unilateral primary osteoarthritis, right knee (principal); Z96.651 Presence of right artificial knee joint ==

== ENCOUNTER → 2021-11-19 | Outpatient (CLI) | payer MEDICARE, OTHER | LOC: CARD 13:00 | PROVIDERS: ATTEND Physician Assistant | DX: I10 Essential (primary) hypertension (principal) | CPT/HCPCS: 93306 ==